=== PATIENT | female | born 1950 | race Caucasian/White ===

== ENCOUNTER → 2016-10-22 | Outpatient (CLI) | payer OTHER ==
[2016-10-22 11:17] LABS: ALBUMIN 3.9 GM/DL (3.2-5.2); ALKALINE PHOSPHATASE 89 U/L (45-117); ALT/SGPT 46 U/L (12-78); ANION GAP 8 MEQ/L (8-16); AST/SGOT 28 U/L (15-37); BILIRUBIN,TOTAL 0.4 MG/DL (0.2-1.0); BLOOD UREA NITROGEN 17 MG/DL (7-18); CARBON DIOXIDE LEVEL 29 MEQ/L (21-32); CHLORIDE LEVEL 105 MEQ/L (98-107); CHOLESTEROL LEVEL 183 MG/DL (<200); CREATININE FOR GFR 0.75 MG/DL (0.55-1.02); GLOMERULAR FILTRATION RATE > 60.0 (>45); GLUCOSE, FASTING 168 MG/DL (80-110); POTASSIUM SERUM 4.4 MEQ/L (3.5-5.1); SODIUM LEVEL 142 MEQ/L (136-145); TOTAL PROTEIN 6.9 GM/DL (6.4-8.2); TRIGLYCERIDES LEVEL 153 MG/DL (<150)
== END ==
LOC: M LAB 10:16
PROVIDERS: ATTEND Family Medicine
DX: E78.5 Hyperlipidemia, unspecified (principal); E55.9 Vitamin D deficiency, unspecified; E11.9 Type 2 diabetes mellitus without complications

== ENCOUNTER → 2016-10-27 | Outpatient (REF) | payer OTHER ==
[2016-10-27 16:10] LABS: FREE T4 0.85 NG/DL (0.76-1.46)
[2016-10-29 10:25] LABS: THYROID PEROXIDASE ANTIBODY < 28.0 U/ML (<60.0)
== END ==
LOC: M SFHCPLAZ 14:12
PROVIDERS: ATTEND Family Medicine
DX: E78.5 Hyperlipidemia, unspecified (principal)
CPT/HCPCS: 84439; 84443; 86376; 86800; G0463

== ENCOUNTER → 2017-02-17 | Outpatient (CLI) | payer OTHER ==
[2017-02-17 09:44] LABS: ALBUMIN/GLOBULIN RATIO 1.48 (1.00-1.93); ALKALINE PHOSPHATASE 88 U/L (45-117); ALT/SGPT 47 U/L (12-78); ANION GAP 8 MEQ/L (8-16); AST/SGOT 18 U/L (15-37); BILIRUBIN,TOTAL 0.5 MG/DL (0.2-1.0); BLOOD UREA NITROGEN 13 MG/DL (7-18); CALCIUM LEVEL 9.1 MG/DL (8.8-10.2); CARBON DIOXIDE LEVEL 29 MEQ/L (21-32); CHLORIDE LEVEL 104 MEQ/L (98-107); CREATININE FOR GFR 0.78 MG/DL (0.55-1.02); GLOMERULAR FILTRATION RATE > 60.0 (>45); GLUCOSE, FASTING 147 MG/DL (80-110); POTASSIUM SERUM 4.3 MEQ/L (3.5-5.1); SODIUM LEVEL 141 MEQ/L (136-145); TOTAL PROTEIN 6.7 GM/DL (6.4-8.2)
== END ==
LOC: M LAB 08:42
PROVIDERS: ATTEND Family Medicine
DX: E11.9 Type 2 diabetes mellitus without complications (principal); E55.9 Vitamin D deficiency, unspecified

== ENCOUNTER → 2017-10-05 | Outpatient (CLI) | payer OTHER ==
[2017-10-05 09:56] LABS: BASO # 0.1 10^3/uL (0.0-0.2); EOS # 0.1 10^3/uL (0.0-0.50); EOS % 1.4 % (0.0-3.0); HEMATOCRIT 44.8 % (36.0-47.0); HEMOGLOBIN 15.2 g/dl (12.0-16.0); IMMATURE GRANULOCYTE % 0.2 % (0-3.0); LYMPH # 1.4 10^3/uL (1.5-4.5); LYMPH % 24.3 % (24.0-44.0); MEAN CORPUSCULAR HEMOGLOBIN 30.1 pg (27.0-33.0); MEAN CORPUSCULAR HGB CONC 33.9 g/dl (32.0-36.5); MEAN CORPUSCULAR VOLUME 88.7 fl (80.0-96.0); MONO # 0.5 10^3/uL (0.0-0.8); MONO % 7.8 % (0.0-5.0); NEUTROPHILS # 3.8 10^3/uL (1.8-7.7); NEUTROPHILS % 65.3 % (36.0-66.0); PLATELET COUNT, AUTOMATED 247 10^3/uL (150-450); RED BLOOD COUNT 5.05 10^6/uL (4.00-5.40); RED CELL DISTRIBUTION WIDTH 12.3 % (11.5-14.5); WHITE BLOOD COUNT 5.8 10^3/uL (4.0-10.0)
[2017-10-05 10:06] LABS: APPEARANCE, URINE CLEAR (CLEAR); BACTERIA, URINE AUTO NEGATIVE (NEGATIVE); BILIRUBIN, URINE AUTO NEGATIVE (NEGATIVE); BLOOD, URINE BLOOD NEGATIVE (NEGATIVE); COLOR, URINE YELLOW (YELLOW); GLUCOSE, URINE (UA) AUTO NEGATIVE (NEGATIVE); KETONE, URINE AUTO NEGATIVE (NEGATIVE); LEUKOCYTE ESTERASE, URINE AUTO TRACE (NEGATIVE); MUCUS, URINE SMALL (NEGATIVE); NITRITE, URINE AUTO NEGATIVE (NEGATIVE); PROTEIN, URINE AUTO NEGATIVE (NEGATIVE); RBC, URINE AUTO 1 /HPF (0-3); SPECIFIC GRAVITY URINE AUTO 1.019 (1.002-1.035); SQUAMOUS EPITHELIAL CELL UR AU 1 /HPF (0-6); UROBILINOGEN, URINE AUTO 0.2 mg/dL (0.0-2.0); WBC, URINE AUTO 4 /HPF (0-3)
[2017-10-05 10:16] LABS: ALBUMIN 4.1 GM/DL (3.2-5.2); ALBUMIN/GLOBULIN RATIO 1.41 (1.00-1.93); ALKALINE PHOSPHATASE 86 U/L (45-117); ALT/SGPT 40 U/L (12-78); ANION GAP 6 MEQ/L (8-16); AST/SGOT 18 U/L (7-37); BILIRUBIN,TOTAL 0.6 MG/DL (0.2-1.0); BLOOD UREA NITROGEN 11 MG/DL (7-18); CALCIUM LEVEL 8.7 MG/DL (8.8-10.2); CARBON DIOXIDE LEVEL 29 MEQ/L (21-32); CHLORIDE LEVEL 107 MEQ/L (98-107); CHOLESTEROL LEVEL 157 MG/DL (<200); CHOLESTEROL RISK RATIO 2.754 (<5); CREATININE FOR GFR 0.68 MG/DL (0.55-1.30); GLOMERULAR FILTRATION RATE > 60.0 (>45); GLUCOSE, FASTING 164 MG/DL (70-100); HDL CHOLESTEROL 57 MG/DL (>40); LDL CHOLESTEROL 72.8 MG/DL (<100); NON-HDL-C 100 MG/DL; POTASSIUM SERUM 4.1 MEQ/L (3.5-5.1); SODIUM LEVEL 142 MEQ/L (136-145); TRIGLYCERIDES LEVEL 136 MG/DL (<150)
[2017-10-05 10:25] LABS: MALB URINE SIEMENS 19.5 MG/L
[2017-10-05 11:02] LABS: ESTIMATED AVERAGE GLUCOSE 177 MG/DL (60-110); HEMOGLOBIN A1c 7.8 %
[2017-10-05 12:03] LABS: TOTAL 25(OH) VITAMIN D 81.1 NG/ML (30.0-100.0)
[2017-10-05 12:04] LABS: PTH INTACT 116.3 PG/ML (18.5-88.0)
[2017-10-06 14:14] LABS: INSULIN LEVEL 5.8 uIU/mL (2.6-24.9)
== END ==
LOC: M LAB 09:09
DX: I10 Essential (primary) hypertension (principal); E11.9 Type 2 diabetes mellitus without complications; E55.9 Vitamin D deficiency, unspecified
CPT/HCPCS: 83525

== ENCOUNTER → 2017-11-06 | Outpatient (REF) | payer OTHER ==
[2017-11-06 16:48] LABS: INR 0.89; PARTIAL THROMBOPLASTIN TIME 24.6 SECONDS (26.8-37.9); PROTHROMBIN TIME 12.1 SECONDS (12.4-14.5)
== END ==
LOC: M SFHCPLAZ 15:01
DX: Z01.818 Encounter for other preprocedural examination (principal); H25.9 Unspecified age-related cataract; Z51.81 Encounter for therapeutic drug level monitoring; Z79.01 Long term (current) use of anticoagulants
CPT/HCPCS: 85610

== ENCOUNTER → 2017-11-23 | Outpatient (REF) | payer OTHER ==
[2017-11-23 12:09] LABS: BASO # 0.1 10^3/uL (0.0-0.2); BASO % 1.3 % (0.0-1.0); EOS # 0.1 10^3/uL (0.0-0.50); EOS % 1.4 % (0.0-3.0); HEMATOCRIT 43.3 % (36.0-47.0); HEMOGLOBIN 14.4 g/dl (12.0-15.5); IMMATURE GRANULOCYTE % 0.2 % (0-3.0); LYMPH # 1.5 10^3/uL (1.5-4.5); LYMPH % 26.4 % (24.0-44.0); MEAN CORPUSCULAR HEMOGLOBIN 29.6 pg (27.0-33.0); MEAN CORPUSCULAR HGB CONC 33.3 g/dl (32.0-36.5); MEAN CORPUSCULAR VOLUME 89.1 fl (80.0-96.0); MONO # 0.4 10^3/uL (0.0-0.8); MONO % 7.4 % (0.0-5.0); NEUTROPHILS # 3.5 10^3/uL (1.8-7.7); NEUTROPHILS % 63.3 % (36.0-66.0); PLATELET COUNT, AUTOMATED 249 10^3/uL (150-450); RED BLOOD COUNT 4.86 10^6/uL (4.00-5.40); RED CELL DISTRIBUTION WIDTH 12.7 % (11.5-14.5); WHITE BLOOD COUNT 5.6 10^3/uL (4.0-10.0)
[2017-11-23 12:17] LABS: INR 0.92; PROTHROMBIN TIME 12.4 SECONDS (12.4-14.5)
[2017-11-23 12:18] LABS: PARTIAL THROMBOPLASTIN TIME 24.7 SECONDS (26.8-37.9)
[2017-11-23 12:48] LABS: ALBUMIN 3.9 GM/DL (3.2-5.2); ALKALINE PHOSPHATASE 70 U/L (45-117); ALT/SGPT 43 U/L (12-78); ANION GAP 7 MEQ/L (8-16); AST/SGOT 15 U/L (7-37); BILIRUBIN,TOTAL 0.4 MG/DL (0.2-1.0); BLOOD UREA NITROGEN 16 MG/DL (7-18); CALCIUM LEVEL 9.3 MG/DL (8.8-10.2); CARBON DIOXIDE LEVEL 27 MEQ/L (21-32); CHLORIDE LEVEL 107 MEQ/L (98-107); CREATININE FOR GFR 0.69 MG/DL (0.55-1.30); GLOMERULAR FILTRATION RATE > 60.0 (>45); GLUCOSE, FASTING 159 MG/DL (70-100); POTASSIUM SERUM 4.3 MEQ/L (3.5-5.1); SODIUM LEVEL 141 MEQ/L (136-145); TOTAL PROTEIN 6.9 GM/DL (6.4-8.2)
[2017-11-23 15:04] LABS: ESTIMATED AVERAGE GLUCOSE 169 MG/DL (60-110); HEMOGLOBIN A1c 7.5 %
== END ==
LOC: M SFHCPLAZ 10:34
DX: Z01.818 Encounter for other preprocedural examination (principal); H26.9 Unspecified cataract; R03.0 Elevated blood-pressure reading, without diagnosis of hypertension; E11.9 Type 2 diabetes mellitus without complications; Z79.84 Long term (current) use of oral hypoglycemic drugs; Z79.899 Other long term (current) drug therapy
CPT/HCPCS: 80053

== ENCOUNTER 2017-12-09 08:38 | Day surgery (SDC) | payer OTHER ==
[~2017-12-09 08:38] MED LIST: PHENYLEPHRINE HCL 10 % OPHTH. SOL 5ML OD
[2017-12-09] MEDS: LIDOCAINE 3.5 % 1ML OPHTH TOPICAL GEL OU (09:20)
[2017-12-09] MEDS: OFLOXACIN 0.3 % (OCUFLOX) OPTH SOL 5ML OD (09:29)
[2017-12-09] MEDS: TROPICAMIDE 1% OPHTH SOLN 2ML OD (09:30)
[2017-12-09] MEDS: CYCLOPENTOLATE 2% OPHTH SOLN 2ML BTL OD (09:31)
[2017-12-09] MEDS: PHENYLEPHRINE 2.5% OPHTH SOL 2ML OD (09:32)
[2017-12-09] MEDS ORDERED: fentaNYL 100 MCG/2 ML INJECTION (J3010) As Ordered (10:39)
[2017-12-09] MEDS ORDERED: MIDAZOLAM INJ 2 MG/2 ML VIAL (J2250) As Ordered (10:39)
[2017-12-09] MEDS: POVIDONE-IODINE 5% OPHTH PREP SOL 30ML As Ordered (10:45)
[2017-12-09] MEDS: CEFUROXIME 1MG/0.1ML INTRACAMERAL INJ As Ordered (10:51)
[2017-12-09] MEDS: BALANCED SALT IRRIGATION SOLUTION 500ML BAG (FOR OR EYE MACHINE) As Ordered (10:51)
[2017-12-09] MEDS: LIDOCAINE 1% SDV 5 ML VIAL As Ordered (10:51)
[2017-12-09] MEDS: HEALON DUET (HEALON 10MG/ML 0.55ML & HEALON ENDOCOAT 30MG/ML 0.85ML) As Ordered (10:51)
[2017-12-09] MEDS ORDERED: AcetaZOLAMIDE 500 MG ER CAP As Ordered (11:28)
[2017-12-09] MEDS ORDERED: ACETAMINOPHEN TAB 650MG DOSE (2X325MG) PO (11:30)
[2017-12-09] MEDS ORDERED: ONDANSETRON 4MG/2ML VIAL (J2405) IV (11:30)
[2017-12-09 13:15] LABS: BEDSIDE GLUCOSE 130 MG/DL (80-115)
== END 2017-12-09 12:00 | disposition home or self-care (01) ==
LOC: M SDC 08:38
DX: H25.12 Age-related nuclear cataract, left eye (principal); I10 Essential (primary) hypertension; E11.9 Type 2 diabetes mellitus without complications; E78.5 Hyperlipidemia, unspecified; G47.30 Sleep apnea, unspecified; Z79.899 Other long term (current) drug therapy
CPT/HCPCS: 66984

== ENCOUNTER → 2017-12-30 | Outpatient (CLI) | payer OTHER | LOC: M SMT 12:16 | DX: M19.012 Primary osteoarthritis, left shoulder (principal); M75.32 Calcific tendinitis of left shoulder; M54.9 Dorsalgia, unspecified | CPT/HCPCS: 71046; G0463 ==

== ENCOUNTER → 2018-02-05 | Outpatient (CLI) | payer OTHER ==
[2018-02-05 09:33] LABS: BASO # 0.1 10^3/uL (0.0-0.2); BASO % 1.1 % (0.0-1.0); EOS # 0.1 10^3/uL (0.0-0.50); EOS % 1.9 % (0.0-3.0); HEMOGLOBIN 14.1 g/dl (12.0-15.5); IMMATURE GRANULOCYTE % 0.2 % (0-3.0); LYMPH # 1.5 10^3/uL (1.5-4.5); MEAN CORPUSCULAR HEMOGLOBIN 30.4 pg (27.0-33.0); MEAN CORPUSCULAR HGB CONC 33.6 g/dl (32.0-36.5); MEAN CORPUSCULAR VOLUME 90.5 fl (80.0-96.0); MONO # 0.4 10^3/uL (0.0-0.8); MONO % 8.6 % (0.0-5.0); NEUTROPHILS # 2.6 10^3/uL (1.8-7.7); NEUTROPHILS % 55.2 % (36.0-66.0); PLATELET COUNT, AUTOMATED 256 10^3/uL (150-450); RED BLOOD COUNT 4.64 10^6/uL (4.00-5.40); RED CELL DISTRIBUTION WIDTH 13.1 % (11.5-14.5); RETIC HEMOGLOBIN EQUIVALENT 35.7 pg (24-36); RETICULOCYTE # 50.1 10^9/L (17-77); RETICULOCYTE % 1.1 % (0.5-1.5); WHITE BLOOD COUNT 4.6 10^3/uL (4.0-10.0)
[2018-02-05 10:36] LABS: ALBUMIN 3.8 GM/DL (3.2-5.2); ALBUMIN/GLOBULIN RATIO 1.31 (1.00-1.93); ALKALINE PHOSPHATASE 70 U/L (45-117); ALT/SGPT 44 U/L (12-78); ANION GAP 7 MEQ/L (8-16); AST/SGOT 19 U/L (7-37); BILIRUBIN,TOTAL 0.4 MG/DL (0.2-1.0); BLOOD UREA NITROGEN 12 MG/DL (7-18); CALCIUM LEVEL 8.4 MG/DL (8.8-10.2); CARBON DIOXIDE LEVEL 28 MEQ/L (21-32); CHLORIDE LEVEL 110 MEQ/L (98-107); CHOLESTEROL LEVEL 248 MG/DL (<200); CHOLESTEROL RISK RATIO 5.061 (<5); CPK CREATINE PHOSPHOKINASE 52 U/L (26-192); CREATININE FOR GFR 0.69 MG/DL (0.55-1.30); GLOMERULAR FILTRATION RATE > 60.0 (>45); GLUCOSE, FASTING 140 MG/DL (70-100); HDL CHOLESTEROL 49 MG/DL (>40); LDL CHOLESTEROL 166.4 MG/DL (<100); NON-HDL-C 199 MG/DL; POTASSIUM SERUM 4.4 MEQ/L (3.5-5.1); SODIUM LEVEL 145 MEQ/L (136-145); TOTAL PROTEIN 6.7 GM/DL (6.4-8.2); TRIGLYCERIDES LEVEL 163 MG/DL (<150)
[2018-02-05 10:48] LABS: ESTIMATED AVERAGE GLUCOSE 151 MG/DL (60-110); HEMOGLOBIN A1c 6.9 %
[2018-02-05 11:04] LABS: PTH INTACT 91.5 PG/ML (18.5-88.0); TOTAL 25(OH) VITAMIN D 47.7 NG/ML (30.0-100.0)
[2018-02-05 11:05] LABS: VITAMIN B12 LEVEL 788 PG/ML (247-911)
[2018-02-05 14:32] LABS: PRETREATED FOLATE FOR RBCFOL 14.4 NG/ML
== END ==
LOC: M LAB 08:57
DX: E53.8 Deficiency of other specified B group vitamins (principal); E78.5 Hyperlipidemia, unspecified; E55.9 Vitamin D deficiency, unspecified; E11.9 Type 2 diabetes mellitus without complications; Z79.899 Other long term (current) drug therapy
CPT/HCPCS: 82550

== ENCOUNTER 2018-02-10 13:00 | Day surgery (SDC) | payer OTHER ==
[2018-02-10 11:25] LABS: BEDSIDE GLUCOSE 173 MG/DL (80-115)
[2018-02-10] MEDS: LIDOCAINE 3.5 % 1ML OPHTH TOPICAL GEL OU (11:29)
[2018-02-10] MEDS: PHENYLEPHRINE 2.5% OPHTH SOL 2ML OS (11:29)
[2018-02-10] MEDS: OFLOXACIN 0.3 % (OCUFLOX) OPTH SOL 5ML OS (11:29)
[2018-02-10] MEDS: TROPICAMIDE 1% OPHTH SOLN 2ML OS (11:30)
[2018-02-10] MEDS: CYCLOPENTOLATE 2% OPHTH SOLN 2ML BTL OS (11:30)
[2018-02-10] MEDS: HEALON DUET (HEALON 10MG/ML 0.55ML & HEALON ENDOCOAT 30MG/ML 0.85ML) As Ordered (11:51)
[2018-02-10] MEDS: BALANCED SALT IRRIGATION SOLUTION 500ML BAG (FOR OR EYE MACHINE) As Ordered (11:51)
[2018-02-10] MEDS: POVIDONE-IODINE 5% OPHTH PREP SOL 30ML As Ordered (11:51)
[2018-02-10] MEDS: LIDOCAINE 1% SDV 5 ML VIAL As Ordered (11:52)
[2018-02-10] MEDS: CEFUROXIME 1MG/0.1ML INTRACAMERAL INJ As Ordered (11:52)
[~2018-02-10 13:00] MED LIST changes: +CYCLOPENTOLATE 2% OPHTH SOLN 2ML BTL As Ordered; +LIDOCAINE 1% MDV 20ML VIAL SQ; +MIDAZOLAM INJ 2 MG/2 ML VIAL (J2250) As Ordered; +OFLOXACIN 0.3 % (OCUFLOX) OPTH SOL 5ML As Ordered; +PHENYLEPHRINE 2.5% OPHTH SOL 2ML As Ordered; -PHENYLEPHRINE HCL 10 % OPHTH. SOL 5ML OD; +PHENYLEPHRINE HCL 10 % OPHTH. SOL 5ML OS; +TROPICAMIDE 1% OPHTH SOLN 2ML As Ordered; +fentaNYL 100 MCG/2 ML INJECTION (J3010) As Ordered
== END 2018-02-10 13:01 | disposition home or self-care (01) ==
LOC: M SDC 13:00
DX: H25.12 Age-related nuclear cataract, left eye (principal); I10 Essential (primary) hypertension; E78.5 Hyperlipidemia, unspecified; E11.9 Type 2 diabetes mellitus without complications; G47.30 Sleep apnea, unspecified; Z79.899 Other long term (current) drug therapy; Z88.8 Allergy status to other drugs, medicaments and biological substances
CPT/HCPCS: 66984

== ENCOUNTER → 2018-06-30 | Outpatient (CLI) | payer OTHER ==
[2018-06-30 10:57] LABS: APPEARANCE, URINE CLEAR (CLEAR); BACTERIA, URINE AUTO 1+ (NEGATIVE); BILIRUBIN, URINE AUTO NEGATIVE (NEGATIVE); BLOOD, URINE BLOOD NEGATIVE (NEGATIVE); COLOR, URINE YELLOW (YELLOW); GLUCOSE, URINE (UA) AUTO NEGATIVE (NEGATIVE); KETONE, URINE AUTO NEGATIVE (NEGATIVE); LEUKOCYTE ESTERASE, URINE AUTO 1+ (NEGATIVE); MUCUS, URINE SMALL (NEGATIVE); NITRITE, URINE AUTO NEGATIVE (NEGATIVE); PROTEIN, URINE AUTO NEGATIVE (NEGATIVE); RBC, URINE AUTO 1 /HPF (0-3); SPECIFIC GRAVITY URINE AUTO 1.017 (1.002-1.035); SQUAMOUS EPITHELIAL CELL UR AU 1 /HPF (0-6); UROBILINOGEN, URINE AUTO 0.2 mg/dL (0.0-2.0); WBC, URINE AUTO 9 /HPF (0-3)
[2018-06-30 11:22] LABS: ALBUMIN/GLOBULIN RATIO 1.38 (1.00-1.93); ALKALINE PHOSPHATASE 78 U/L (45-117); ALT/SGPT 40 U/L (12-78); ANION GAP 4 MEQ/L (8-16); AST/SGOT 15 U/L (7-37); BILIRUBIN,TOTAL 0.4 MG/DL (0.2-1.0); BLOOD UREA NITROGEN 17 MG/DL (7-18); C REACTIVE PROTEIN QUANTITATIV < 0.30 MG/DL (0.00-0.30); CALCIUM LEVEL 8.7 MG/DL (8.8-10.2); CARBON DIOXIDE LEVEL 30 MEQ/L (21-32); CHLORIDE LEVEL 107 MEQ/L (98-107); CHOLESTEROL LEVEL 270 MG/DL (<200); CHOLESTEROL RISK RATIO 5.294 (<5); CREATININE FOR GFR 0.68 MG/DL (0.55-1.30); GLOMERULAR FILTRATION RATE > 60.0 (>45); GLUCOSE, FASTING 125 MG/DL (70-100); HDL CHOLESTEROL 51 MG/DL (>40); LDL CHOLESTEROL 188 MG/DL (<100); NON-HDL-C 219 MG/DL; POTASSIUM SERUM 4.2 MEQ/L (3.5-5.1); SODIUM LEVEL 141 MEQ/L (136-145); TOTAL PROTEIN 6.9 GM/DL (6.4-8.2); TRIGLYCERIDES LEVEL 154 MG/DL (<150)
[2018-06-30 11:23] LABS: ESTIMATED AVERAGE GLUCOSE 146 MG/DL (60-110); HEMOGLOBIN A1c 6.7 %; MALB URINE SIEMENS 32.4 MG/L; MAU/CREAT RATIO 30.2 MCG/MG (0.0-30.0)
[2018-06-30 11:32] LABS: TOTAL 25(OH) VITAMIN D 49.1 NG/ML (30.0-100.0)
[2018-06-30 11:33] LABS: PTH INTACT 104.4 PG/ML (18.5-88.0)
== END ==
LOC: M LAB 10:15
DX: E55.9 Vitamin D deficiency, unspecified (principal); E11.9 Type 2 diabetes mellitus without complications; E78.5 Hyperlipidemia, unspecified; Z79.899 Other long term (current) drug therapy
CPT/HCPCS: 80053

== ENCOUNTER → 2018-11-23 | Outpatient (CLI) | payer MEDICARE, OTHER ==
[~2018-11-23] MED LIST changes: -CYCLOPENTOLATE 2% OPHTH SOLN 2ML BTL As Ordered; -LIDOCAINE 1% MDV 20ML VIAL SQ; +LISI-1046 PO; +METF500T4 PO; -MIDAZOLAM INJ 2 MG/2 ML VIAL (J2250) As Ordered; -OFLOXACIN 0.3 % (OCUFLOX) OPTH SOL 5ML As Ordered; -PHENYLEPHRINE 2.5% OPHTH SOL 2ML As Ordered; -PHENYLEPHRINE HCL 10 % OPHTH. SOL 5ML OS; +ROSU5TAB4 PO; -TROPICAMIDE 1% OPHTH SOLN 2ML As Ordered; -fentaNYL 100 MCG/2 ML INJECTION (J3010) As Ordered
[2018-11-23 10:35] LABS: HEMOGLOBIN A1c 7.3 %
[2018-11-23 10:45] LABS: MALB URINE SIEMENS 30.4 MG/L; MAU/CREAT RATIO 25.3 MCG/MG (0.0-30.0)
[2018-11-23 10:46] LABS: APPEARANCE, URINE HAZY (CLEAR); BACTERIA, URINE AUTO NEGATIVE (NEGATIVE); BILIRUBIN, URINE AUTO NEGATIVE (NEGATIVE); BLOOD, URINE BLOOD NEGATIVE (NEGATIVE); COLOR, URINE YELLOW (YELLOW); GLUCOSE, URINE (UA) AUTO NEGATIVE (NEGATIVE); KETONE, URINE AUTO NEGATIVE (NEGATIVE); LEUKOCYTE ESTERASE, URINE AUTO 3+ (NEGATIVE); MUCUS, URINE SMALL (NEGATIVE); NITRITE, URINE AUTO NEGATIVE (NEGATIVE); PROTEIN, URINE AUTO NEGATIVE (NEGATIVE); RBC, URINE AUTO 4 /HPF (0-3); SPECIFIC GRAVITY URINE AUTO 1.017 (1.002-1.035); SQUAMOUS EPITHELIAL CELL UR AU 4 /HPF (0-6); UROBILINOGEN, URINE AUTO 0.2 mg/dL (0.0-2.0); WBC, URINE AUTO 42 /HPF (0-3)
[2018-11-23 10:47] LABS: ALT/SGPT 38 U/L (12-78); BLOOD UREA NITROGEN 18 MG/DL (7-18); CALCIUM LEVEL 9.1 MG/DL (8.8-10.2); CARBON DIOXIDE LEVEL 31 MEQ/L (21-32); CHLORIDE LEVEL 108 MEQ/L (98-107); CPK CREATINE PHOSPHOKINASE 55 U/L (26-192); CREATININE FOR GFR 0.74 MG/DL (0.55-1.30); GLOMERULAR FILTRATION RATE > 60.0 (>45); GLUCOSE, FASTING 147 MG/DL (70-100); POTASSIUM SERUM 4.5 MEQ/L (3.5-5.1); SODIUM LEVEL 142 MEQ/L (136-145)
[2018-11-23 10:48] LABS: BILIRUBIN,TOTAL 0.4 MG/DL (0.2-1.0); CHOLESTEROL LEVEL 289 MG/DL (<200); FREE T4 0.89 NG/DL (0.76-1.46); HDL CHOLESTEROL 50 MG/DL (>40); LDL CHOLESTEROL 193 MG/DL (<100); NON-HDL-C 239 MG/DL; TOTAL PROTEIN 6.6 GM/DL (6.4-8.2); TRIGLYCERIDES LEVEL 230 MG/DL (<150)
== END ==
LOC: M RAD 09:44 → M LAB 09:44
PROVIDERS: ATTEND Family Medicine
DX: E11.9 Type 2 diabetes mellitus without complications (principal)

== ENCOUNTER → 2019-05-05 | Outpatient (CLI) | payer MEDICARE ==
[~2019-05-05] MED LIST changes: +METF-791 PO; -METF500T4 PO; -ROSU5TAB4 PO; +ROSU5TAB5 PO
[2019-05-05 10:52] LABS: BASO # 0.1 10^3/uL (0.0-0.2); BASO % 1.3 % (0.0-1.0); EOS # 0.1 10^3/uL (0.0-0.5); EOS % 2.3 % (0.0-3.0); HEMATOCRIT 43.9 % (36.0-47.0); LYMPH # 1.6 10^3/uL (1.5-5.0); LYMPH % 28.8 % (24.0-44.0); MEAN CORPUSCULAR HEMOGLOBIN 31.4 pg (27.0-33.0); MEAN CORPUSCULAR HGB CONC 34.2 g/dl (32.0-36.5); MEAN CORPUSCULAR VOLUME 91.8 fl (80.0-96.0); MONO # 0.4 10^3/uL (0.0-0.8); MONO % 7.6 % (0.0-5.0); NEUTROPHILS # 3.3 10^3/uL (1.5-8.5); NEUTROPHILS % 59.8 % (36.0-66.0); PLATELET COUNT, AUTOMATED 231 10^3/uL (150-450); RED BLOOD COUNT 4.78 10^6/uL (4.00-5.40); WHITE BLOOD COUNT 5.6 10^3/uL (4.0-10.0)
[2019-05-05 11:11] LABS: HEMOGLOBIN A1c 7.4 %
[2019-05-05 11:31] LABS: ALT/SGPT 39 U/L (12-78); BILIRUBIN,TOTAL 0.5 MG/DL (0.2-1.0); BLOOD UREA NITROGEN 15 MG/DL (7-18); C REACTIVE PROTEIN QUANTITATIV < 0.30 MG/DL (0.00-0.30); CALCIUM LEVEL 9.1 MG/DL (8.8-10.2); CARBON DIOXIDE LEVEL 31 MEQ/L (21-32); CHLORIDE LEVEL 106 MEQ/L (98-107); CHOLESTEROL LEVEL 168 MG/DL (<200); CHOLESTEROL RISK RATIO 3.111 (<5); CPK CREATINE PHOSPHOKINASE 53 U/L (26-192); CREATININE FOR GFR 0.75 MG/DL (0.55-1.30); GLOMERULAR FILTRATION RATE > 60.0 (>45); GLUCOSE, FASTING 146 MG/DL (70-100); HDL CHOLESTEROL 54 MG/DL (>40); LDL CHOLESTEROL 75 MG/DL (<100); NON-HDL-C 114 MG/DL; POTASSIUM SERUM 4.2 MEQ/L (3.5-5.1); SODIUM LEVEL 143 MEQ/L (136-145); TOTAL PROTEIN 6.8 GM/DL (6.4-8.2); TRIGLYCERIDES LEVEL 196 MG/DL (<150)
[2019-05-05 11:33] LABS: VITAMIN B12 LEVEL 515 PG/ML (247-911)
[2019-05-06 10:04] LABS: THYROID PEROXIDASE ANTIBODY 42.9 U/ML (<60.0)
== END ==
LOC: M LAB 09:55
PROVIDERS: ATTEND Family Medicine
DX: I10 Essential (primary) hypertension (principal); E78.5 Hyperlipidemia, unspecified; E11.9 Type 2 diabetes mellitus without complications

== ENCOUNTER → 2019-10-04 | Outpatient (CLI) | payer MEDICARE ==
[2019-10-04 10:31] LABS: BASO # 0.1 10^3/uL (0.0-0.2); EOS # 0.1 10^3/uL (0.0-0.5); EOS % 1.4 % (0.0-3.0); HEMATOCRIT 43.7 % (36.0-47.0); HEMOGLOBIN 14.7 g/dl (12.0-15.5); LYMPH # 1.5 10^3/uL (1.5-5.0); LYMPH % 29.7 % (24.0-44.0); MEAN CORPUSCULAR HEMOGLOBIN 30.6 pg (27.0-33.0); MEAN CORPUSCULAR HGB CONC 33.6 g/dl (32.0-36.5); MEAN CORPUSCULAR VOLUME 90.9 fl (80.0-96.0); MONO # 0.4 10^3/uL (0.0-0.8); MONO % 7.9 % (0.0-5.0); NEUTROPHILS # 3.1 10^3/uL (1.5-8.5); NEUTROPHILS % 59.8 % (36.0-66.0); PLATELET COUNT, AUTOMATED 236 10^3/uL (150-450); RED BLOOD COUNT 4.81 10^6/uL (4.00-5.40); WHITE BLOOD COUNT 5.2 10^3/uL (4.0-10.0)
[2019-10-04 10:51] LABS: ALBUMIN 4.2 GM/DL (3.2-5.2); ALT/SGPT 48 U/L (12-78); BILIRUBIN,TOTAL 0.5 MG/DL (0.2-1.0); BLOOD UREA NITROGEN 15 MG/DL (7-18); CALCIUM LEVEL 8.9 MG/DL (8.8-10.2); CARBON DIOXIDE LEVEL 28 MEQ/L (21-32); CHLORIDE LEVEL 109 MEQ/L (98-107); CHOLESTEROL LEVEL 154 MG/DL (<200); CHOLESTEROL RISK RATIO 2.961 (<5); GLOMERULAR FILTRATION RATE > 60.0 (>45); GLUCOSE, FASTING 166 MG/DL (70-100); HDL CHOLESTEROL 52 MG/DL (>40); LDL CHOLESTEROL 75 MG/DL (<100); NON-HDL-C 102 MG/DL; POTASSIUM SERUM 4.3 MEQ/L (3.5-5.1); SODIUM LEVEL 141 MEQ/L (136-145); TOTAL PROTEIN 6.8 GM/DL (6.4-8.2); TRIGLYCERIDES LEVEL 135 MG/DL (<150)
[2019-10-04 11:38] LABS: PTH INTACT 66.9 PG/ML (18.5-88.0); TOTAL 25(OH) VITAMIN D 62.9 NG/ML (30.0-100.0); VITAMIN B12 LEVEL 682 PG/ML (247-911)
== END ==
LOC: M LAB 09:39
PROVIDERS: ATTEND Family Medicine
DX: E78.5 Hyperlipidemia, unspecified (principal)

== ENCOUNTER → 2020-03-01 | Outpatient (CLI) | payer MEDICARE ==
[~2020-03-01] MED LIST changes: -LISI-1046 PO; +LISI2.5T2 PO; -METF-791 PO; +METF-838 PO
[2020-03-31 10:24] LABS: BASO # 0.1 10^3/uL (0.0-0.2); BASO % 1.1 % (0.0-1.0); EOS # 0.1 10^3/uL (0.0-0.5); EOS % 2.1 % (0.0-3.0); HEMATOCRIT 45.2 % (36.0-47.0); HEMOGLOBIN 14.8 g/dl (12.0-15.5); LYMPH # 1.7 10^3/uL (1.5-5.0); LYMPH % 31.6 % (24.0-44.0); MEAN CORPUSCULAR HEMOGLOBIN 30.6 pg (27.0-33.0); MEAN CORPUSCULAR HGB CONC 32.7 g/dl (32.0-36.5); MEAN CORPUSCULAR VOLUME 93.4 fl (80.0-96.0); MONO # 0.4 10^3/uL (0.0-0.8); MONO % 8.3 % (0.0-5.0); NEUTROPHILS % 56.7 % (36.0-66.0); PLATELET COUNT, AUTOMATED 245 10^3/uL (150-450); RED BLOOD COUNT 4.84 10^6/uL (4.00-5.40); WHITE BLOOD COUNT 5.3 10^3/uL (4.0-10.0)
[2020-04-16 08:36] LABS: ALBUMIN 4.3 GM/DL (3.2-5.2); ALT/SGPT 48 U/L (12-78); BILIRUBIN,TOTAL 0.5 MG/DL (0.2-1.0); BLOOD UREA NITROGEN 17 MG/DL (7-18); CARBON DIOXIDE LEVEL 32 MEQ/L (21-32); CHLORIDE LEVEL 107 MEQ/L (98-107); FREE T4 0.85 NG/DL (0.76-1.46); GLOMERULAR FILTRATION RATE > 60.0 (>39); GLUCOSE, FASTING 116 MG/DL (70-100); HEMOGLOBIN A1c 6.8 %; MALB URINE SIEMENS 16.8 MG/L; POTASSIUM SERUM 4.3 MEQ/L (3.5-5.1); SODIUM LEVEL 140 MEQ/L (136-145); TOTAL PROTEIN 7.2 GM/DL (6.4-8.2)
[2020-06-06 15:47] LABS: LEUKOCYTE ESTERASE, URINE AUTO TNPT (NEGATIVE)
== END ==
LOC: M LAB 09:58
PROVIDERS: ATTEND Family Medicine
DX: E53.8 Deficiency of other specified B group vitamins (principal); E78.5 Hyperlipidemia, unspecified; E11.9 Type 2 diabetes mellitus without complications

== ENCOUNTER → 2020-08-07 | Outpatient (CLI) | payer MEDICARE ==
[2020-08-07 11:12] LABS: BASO % 0.8 % (0.0-1.0); EOS # 0.1 10^3/uL (0.0-0.5); EOS % 1.2 % (0.0-3.0); HEMATOCRIT 43.8 % (36.0-47.0); HEMOGLOBIN 14.4 g/dl (12.0-15.5); LYMPH # 1.6 10^3/uL (1.5-5.0); LYMPH % 30.9 % (24.0-44.0); MEAN CORPUSCULAR HEMOGLOBIN 30.1 pg (27.0-33.0); MEAN CORPUSCULAR HGB CONC 32.9 g/dl (32.0-36.5); MEAN CORPUSCULAR VOLUME 91.4 fl (80.0-96.0); MONO # 0.4 10^3/uL (0.0-0.8); MONO % 8.4 % (0.0-5.0); NEUTROPHILS # 2.9 10^3/uL (1.5-8.5); NEUTROPHILS % 58.5 % (36.0-66.0); PLATELET COUNT, AUTOMATED 266 10^3/uL (150-450); RED BLOOD COUNT 4.79 10^6/uL (4.00-5.40)
[2020-08-07 11:29] LABS: HEMOGLOBIN A1c 6.6 %
[2020-08-07 11:35] LABS: ALT/SGPT 41 U/L (12-78); BILIRUBIN,TOTAL 0.7 MG/DL (0.2-1.0); BLOOD UREA NITROGEN 14 MG/DL (7-18); CALCIUM LEVEL 9.4 MG/DL (8.8-10.2); CARBON DIOXIDE LEVEL 32 MEQ/L (21-32); CHLORIDE LEVEL 106 MEQ/L (98-107); CHOLESTEROL LEVEL 179 MG/DL (<200); CHOLESTEROL RISK RATIO 3.808 (<5); CREATININE FOR GFR 0.88 MG/DL (0.55-1.30); FREE T4 0.87 NG/DL (0.76-1.46); GLOMERULAR FILTRATION RATE > 60.0 (>39); GLUCOSE, FASTING 91 MG/DL (70-100); HDL CHOLESTEROL 47 MG/DL (>40); LDL CHOLESTEROL 98 MG/DL (<100); NON-HDL-C 132 MG/DL; POTASSIUM SERUM 4.1 MEQ/L (3.5-5.1); SODIUM LEVEL 141 MEQ/L (136-145); TRIGLYCERIDES LEVEL 169 MG/DL (<150)
[2020-08-07 11:40] LABS: MALB URINE SIEMENS 36.2 MG/L; MAU/CREAT RATIO 14.1 MCG/MG (0.0-30.0)
== END ==
LOC: M LAB 10:05
PROVIDERS: ATTEND Family Medicine
DX: E55.9 Vitamin D deficiency, unspecified (principal); E78.5 Hyperlipidemia, unspecified; I10 Essential (primary) hypertension; E11.9 Type 2 diabetes mellitus without complications

== ENCOUNTER → 2020-09-06 | Outpatient (CLI) | payer MEDICARE ==
--- NOTE | 2020-09-06 11:20 | REPPI ---
INDICATION: R14.0 ABDOMINAL BLOATING COMPARISON: None. TECHNIQUE: Upright view of the chest with supine and upright views of the abdomen and pelvis. FINDINGS: Frontal upright view of the chest demonstrates no acute cardiopulmonary process or free air below the diaphragm to suspect pneumoperitoneum. Supine and upright views of the abdomen and pelvis demonstrate nonspecific bowel gas pattern without obstruction or perforation. No organomegaly. No abnormal calcifications. Skeletal structures normal for age. IMPRESSION: Nonspecific bowel gas pattern. <Electronically signed by Leno Mtz > 09/06/20 [id number]
== END ==
LOC: M PLAIMG 10:56
PROVIDERS: ATTEND Family Medicine
DX: R14.0 Abdominal distension (gaseous) (principal)
CPT/HCPCS: 74021; G0463

== ENCOUNTER → 2020-09-27 | Outpatient (REF) | payer MEDICARE ==
[2020-09-27 14:38] LABS: ALBUMIN 4.2 GM/DL (3.2-5.2); ALT/SGPT 40 U/L (12-78); BILIRUBIN,TOTAL 0.3 MG/DL (0.2-1.0); BLOOD UREA NITROGEN 18 MG/DL (7-18); CALCIUM LEVEL 9.6 MG/DL (8.8-10.2); CARBON DIOXIDE LEVEL 30 MEQ/L (21-32); CHLORIDE LEVEL 109 MEQ/L (98-107); CREATININE FOR GFR 0.81 MG/DL (0.55-1.30); GLOMERULAR FILTRATION RATE > 60.0 (>39); GLUCOSE, FASTING 144 MG/DL (70-100); LIPASE 102 U/L (73-393); POTASSIUM SERUM 4.2 MEQ/L (3.5-5.1); SODIUM LEVEL 142 MEQ/L (136-145); TOTAL PROTEIN 6.9 GM/DL (6.4-8.2)
[2020-09-27 14:40] LABS: BASO # 0.1 10^3/uL (0.0-0.2); BASO % 1.1 % (0.0-1.0); EOS # 0.1 10^3/uL (0.0-0.5); EOS % 1.4 % (0.0-3.0); HEMATOCRIT 43.8 % (36.0-47.0); LYMPH # 1.8 10^3/uL (1.5-5.0); LYMPH % 28.3 % (24.0-44.0); MEAN CORPUSCULAR HEMOGLOBIN 29.8 pg (27.0-33.0); MEAN CORPUSCULAR VOLUME 93.2 fl (80.0-96.0); MONO # 0.5 10^3/uL (0.0-0.8); MONO % 7.9 % (2.0-8.0); NEUTROPHILS # 3.9 10^3/uL (1.5-8.5); NEUTROPHILS % 61.1 % (36.0-66.0); PLATELET COUNT, AUTOMATED 277 10^3/uL (150-450); WHITE BLOOD COUNT 6.4 10^3/uL (4.0-10.0)
[2020-09-27 15:15] LABS: CA 125 5.4 U/ML (<30.2)
[2020-10-05 15:09] LABS: H PYLORI SERUM QUANT IgG ABY 0.12 (0.00-0.79); TISSUE TRANSGLUTAMINASE IgA <2 U/mL (0-3)
== END ==
LOC: M SFHCPLAZ 13:02
PROVIDERS: ATTEND Family Medicine
DX: R14.0 Abdominal distension (gaseous) (principal)
CPT/HCPCS: 36415; 80053; 83516; 83519; 83690; 85025; 86140; 86304; 86677; G0463

== ENCOUNTER → 2020-10-12 | Outpatient (CLI) | payer MEDICARE ==
[~2020-10-12] MED LIST changes: +GASTROGRAFIN SOLUTION 30ML (Q9963) As Ordered ONE
--- NOTE | 2020-10-12 18:55 | REP ---
INDICATION: ABDOMINAL BLOATING. COMPARISON: None TECHNIQUE: Axial contrast-enhanced images from the lung bases to the pubic symphysis using oral and 100 cc Isovue 370 intravenous contrast material. Coronal and sagittal reformations obtained. This CT examination was performed using the following dose reduction techniques: Automated exposure control, adjustment of mA and/or kv according to the patient's size, and the use of iterative reconstruction technique. FINDINGS: Lung bases are clear. Visualized heart and pericardium normal. Liver demonstrates mild fatty infiltration without focal hepatic lesion. Spleen, pancreas, bilateral adrenal glands and kidneys are normal. Evidence for prior cholecystectomy. The enteric system including stomach, small, and large bowel appears normal. No evidence for obstruction or acute inflammatory process. Normal terminal ileum and cecum are identified in the right lower quadrant. Pelvis demonstrates normal bladder and evidence for prior hysterectomy. No ascites. No free air. No intraperitoneal or retroperitoneal adenopathy. Abdominal aorta and vasculature appear normal. Musculoskeletal structures are intact and without acute osseous abnormality. IMPRESSION: No acute abdominopelvic pathology appreciated. Mild hepatosteatosis. <Electronically signed by Leno Mtz > 10/12/20 [id number]
== END ==
LOC: M RAD 15:04
PROVIDERS: ATTEND Family Medicine
DX: R14.0 Abdominal distension (gaseous) (principal); K76.0 Fatty (change of) liver, not elsewhere classified
CPT/HCPCS: 74177; Q9963

== ENCOUNTER → 2020-10-30 | Outpatient (CLI) | payer MEDICARE ==
[~2020-10-30] MED LIST changes: -GASTROGRAFIN SOLUTION 30ML (Q9963) As Ordered ONE
--- NOTE | 2020-10-30 11:39 | REP ---
INDICATION: ABD BLOATING. COMPARISON: None. TECHNIQUE/RADIOTRACER AND DOSE: 1.05 mCi of Technetium-99m sulfur colloid was ingested in two scrambled eggs and 6 ounces of water and sequential anterior and posterior images are acquired for an 89-minute imaging observation period. Regions of interest are drawn around the stomach to plot gastric emptying. FINDINGS: Expected T1/2 is 90 minutes. Forty-seven% emptying is observed in this patient during the 89-minute imaging observation period, for a calculated T1/2 in this patient of 88 minutes. IMPRESSION: Normal gastric emptying. <Electronically signed by Rodriguez Rouse > 10/30/20 [id number]
== END ==
LOC: M RAD 08:52
PROVIDERS: ATTEND Family Medicine
DX: R14.0 Abdominal distension (gaseous) (principal)
CPT/HCPCS: 78264; A9541

== ENCOUNTER → 2020-12-04 | Outpatient (CLI) | payer MEDICARE ==
[2020-12-04 12:16] LABS: BASO # 0.1 10^3/uL (0.0-0.2); BASO % 1.2 % (0.0-1.0); EOS # 0.1 10^3/uL (0.0-0.5); HEMOGLOBIN 14.3 g/dl (12.0-15.5); LYMPH # 1.6 10^3/uL (1.5-5.0); LYMPH % 26.5 % (24.0-44.0); MEAN CORPUSCULAR HEMOGLOBIN 30.3 pg (27.0-33.0); MEAN CORPUSCULAR HGB CONC 32.5 g/dl (32.0-36.5); MEAN CORPUSCULAR VOLUME 93.2 fl (80.0-96.0); MONO # 0.5 10^3/uL (0.0-0.8); MONO % 7.9 % (2.0-8.0); NEUTROPHILS # 3.7 10^3/uL (1.5-8.5); NEUTROPHILS % 62.2 % (36.0-66.0); PLATELET COUNT, AUTOMATED 257 10^3/uL (150-450); RED BLOOD COUNT 4.72 10^6/uL (4.00-5.40); WHITE BLOOD COUNT 5.9 10^3/uL (4.0-10.0)
[2020-12-04 12:43] LABS: ALBUMIN 4.2 GM/DL (3.2-5.2); ALT/SGPT 39 U/L (12-78); BILIRUBIN,TOTAL 0.5 MG/DL (0.2-1.0); BLOOD UREA NITROGEN 18 MG/DL (7-18); CALCIUM LEVEL 9.5 MG/DL (8.8-10.2); CARBON DIOXIDE LEVEL 29 MEQ/L (21-32); CHLORIDE LEVEL 109 MEQ/L (98-107); CREATININE FOR GFR 0.68 MG/DL (0.55-1.30); GLOMERULAR FILTRATION RATE > 60.0 (>39); GLUCOSE, FASTING 113 MG/DL (70-100); LIPASE 105 U/L (73-393); POTASSIUM SERUM 4.3 MEQ/L (3.5-5.1); SODIUM LEVEL 143 MEQ/L (136-145); TOTAL PROTEIN 7.1 GM/DL (6.4-8.2)
[2020-12-04 13:21] LABS: CA 125 5.4 U/ML (<30.2)
[2020-12-04 14:01] LABS: H PYLORI QUALITATIVE IgG NEGATIVE (NEGATIVE)
== END ==
LOC: M LAB 10:47
PROVIDERS: ATTEND Family Medicine
DX: R14.0 Abdominal distension (gaseous) (principal)

== ENCOUNTER → 2021-04-15 | Outpatient (CLI) | payer MEDICARE ==
[~2021-04-15] MED LIST changes: -LISI2.5T2 PO; +LISI2.5T9 PO
[2021-04-15 13:40] LABS: BASO # 0.1 10^3/uL (0.0-0.2); BASO % 1.4 % (0.0-1.0); EOS # 0.1 10^3/uL (0.0-0.5); EOS % 2.3 % (0.0-3.0); HEMATOCRIT 43.3 % (36.0-47.0); LYMPH # 1.1 10^3/uL (1.5-5.0); LYMPH % 25.2 % (24.0-44.0); MEAN CORPUSCULAR HEMOGLOBIN 30.4 pg (27.0-33.0); MEAN CORPUSCULAR HGB CONC 32.3 g/dl (32.0-36.5); MEAN CORPUSCULAR VOLUME 93.9 fl (80.0-96.0); MONO # 0.4 10^3/uL (0.0-0.8); MONO % 9.2 % (2.0-8.0); NEUTROPHILS # 2.7 10^3/uL (1.5-8.5); NEUTROPHILS % 61.7 % (36.0-66.0); PLATELET COUNT, AUTOMATED 248 10^3/uL (150-450); RED BLOOD COUNT 4.61 10^6/uL (4.00-5.40); WHITE BLOOD COUNT 4.4 10^3/uL (4.0-10.0)
[2021-04-15 14:53] LABS: MALB URINE SIEMENS 22.9 MG/L
[2021-04-15 15:46] LABS: ALT/SGPT 35 U/L (12-78); BILIRUBIN,TOTAL 0.4 MG/DL (0.2-1.0); BLOOD UREA NITROGEN 14 MG/DL (7-18); CALCIUM LEVEL 9.4 MG/DL (8.8-10.2); CARBON DIOXIDE LEVEL 29 MEQ/L (21-32); CHLORIDE LEVEL 109 MEQ/L (98-107); CHOLESTEROL LEVEL 184 MG/DL (<200); CHOLESTEROL RISK RATIO 3.285 (<5); CREATININE FOR GFR 0.75 MG/DL (0.55-1.30); GLOMERULAR FILTRATION RATE > 60.0 (>39); GLUCOSE, FASTING 147 MG/DL (70-100); HDL CHOLESTEROL 56 MG/DL (>40); LDL CHOLESTEROL 106 MG/DL (<100); NON-HDL-C 128 MG/DL; POTASSIUM SERUM 4.3 MEQ/L (3.5-5.1); PTH INTACT 74.1 PG/ML (18.5-88.0); SODIUM LEVEL 142 MEQ/L (136-145); TOTAL 25(OH) VITAMIN D 58.6 NG/ML (30.0-100.0); TOTAL PROTEIN 6.9 GM/DL (6.4-8.2); TRIGLYCERIDES LEVEL 111 MG/DL (<150)
[2021-04-15 18:04] LABS: HEMOGLOBIN A1c 6.6 %
== END ==
LOC: M PLALAB 09:26
PROVIDERS: ATTEND Family Medicine
DX: E11.9 Type 2 diabetes mellitus without complications (principal)

== ENCOUNTER → 2021-06-29 | Outpatient (CLI) | payer MEDICARE ==
[~2021-06-29] MED LIST changes: +GLIM1TAB4 PO; +RAMI1CAP22 PO; +REST0.05 OU
== END ==
LOC: M LABSMTC 09:03
PROVIDERS: ATTEND Anesthesiology
DX: Z01.812 Encounter for preprocedural laboratory examination (principal); Z11.52 Encounter for screening for COVID-19

== ENCOUNTER 2021-07-04 06:50 | Day surgery (SDC) | payer MEDICARE ==
[~2021-07-04] VITALS: Ht 167.6 cm; Wt 67.6 kg
[~2021-07-04 06:50] MED LIST changes: +NS 1,000 ML IV ONE
--- OUTSIDE RECORDS SUMMARY | 2021-07-04 06:55 | CCD ---
Author Author [facility] Organization [facility] Address Unknown Phone Unavailable Care Team Providers Care School Aide Name Role Phone Farhan Akhtar Unavailable PROBLEMS Type Condition ICD9-CM Code [id number] Code Onset Dates Condition S tatus W/U Status Risk SNOMED Code Notes Problem T2DM (type 2 diabetes mellitus) E11.9 Active confi rmed 56565228 Problem Vaginal candidiasis B37.3 Active confirmed 23068251 Problem Hyperlipidemia E78.5 Active confirmed 70380 004 Problem Vitamin D deficiency E55.9 Active confirmed 71297521 Problem Periodic limb movement G47.61 Active confirmed 060977661 Problem Hypertension I10 Active confirmed 7497657 3 Problem Osteoarthritis of knees, bilateral M17.0 Activ e confirmed 551916861 Problem Rosacea L71.9 Active confirmed 513676477 Problem Overweight E66.3 Active confirmed 133547328 Problem ALEXA (obstructive sleep apnea) G47.33 Active confirm ed 49992973 Problem Breast cancer screening Z12.39 Active confirmed 031703841 Problem Gastroesophageal reflux disease without esophagitis K21.9 Active confirmed 150142295 Problem Vitamin B12 deficiency E53.8 Active confirmed 840896342 Problem FH: colon cancer Z80.0 Active confirmed 312 635855 Problem Keratoconjunctivitis sicca M35.01 Active confirmed 178656066 Problem Colon cancer screening Z12.11 Active confirmed 162664033 Problem Chronic non-seasonal allergic rhinitis, unspecified trigge r J30.89 Active confirmed 65930296 Problem Elevated blood pressure reading without diagnosi s of hypertension R03.0 Active confirmed 878224924 Problem Lichen simplex chronicus L28.0 Active confirmed 08103771 ALLERGIES Allergen (clinical drug ingredient) Drug/Non Drug Allergy do cumented on EMR Reaction Allergy Type Onset Date Status canagliflozin Invokana([facility] Code:[address]-71) yeast infection Drug A llergy Active ENCOUNTERS from 1950 to 2021-04-19 Encounter Location Date Provider [facility] [address] [phone] [place] [address] 16 Apr, 2021 Farhan Hermilo Abdominal bloating R14.0 ; G astroesophageal reflux disease without esophagitis K21.9 ; T2DM (type 2 diabetes mellitus) E11.9 ; Lichen simplex chronicus L28.0 ; Hypertension I10 ; FH: colon cancer Z80.0 ; Chronic non- seasonal allergic rhinitis, unspecified trigger J30.89 ; Hyperlipidemia E78.5 ; Rosacea L71.9 ; Vaginal candidiasis B37.3 ; Periodic limb movement G47.61 ; Vitamin D deficiency E55.9 ; Osteoarthritis of knees, bilateral M17.0 ; Overweight E66.3 ; Breast cancer screening Z12.39 ; Keratoconjunctivitis sicca M35.01 ; Vitamin B12 deficiency E53.8 ; ALEXA (obstructive sleep apnea) G47.33 and Colon cancer screening Z12.11 IMMUNIZATIONS Vaccine Route Administration Date Status Influenza (High Dose 65 & up) IM Intramuscular Jun 30, 2016 A dministered Influenza 6mo & up Fluzone IM Intramuscular Jul 21, 2014 Admi nistered Influenza 6mo & up Fluzone IN intranasal Aug 31, 2012 Admin istered Influenza 6mo & up Fluzone IM Intramuscular Jul 18, 2011 Admi nistered Influenza 6mo & up Fluzone IM Intramuscular Jul 25, 2010 Admi nistered SOCIAL HISTORY Tobacco Use: Social History Observation Description Date Details (start date - stop date) Never Smoker Sex Assigned At : Social History Observation Description Sex Assigned At Unknown Language: Question Answer Notes Languages spoken: Spanish Congregation: Question Answer Notes Congregation [employer] Sexual Hx: Question Answer Notes Had sex in the last 12 months (vaginal, oral, or anal)? No Have you ever had an STD? No Alcohol Screening: Question Answer Notes Did you have a drink containing alcohol in the past year? No Points 0 Interpretation Negative BMI Care Goal Follow-Up Question Answer Notes Above Normal BMI Follow-Up Giving encouragement to exercise Tobacco Use: Question Answer Notes Are you a: never smoker REASON FOR REFERRAL No Information VITAL SIGNS Weight 160.0 lbs Apr, Weight-kg 72.58 kg Apr, Height 66.5 in Apr, BMI 25.44 kg/m2 Apr, Heart Rate 109 /min Apr, Respiratory Rate 18 /min Apr, Temperature 97 degrees Fahrenheit Apr, Oximetry 98% Apr, Blood pressure systolic 140 mm Hg Apr, Blood pressure diastolic 82 mm Hg Apr, MEDICATIONS Medication SIG (Take, Route, Frequency, Duration) Notes Start Da te End Date Status Restasis 0.05 % 1 into affected eye Ophthalmic Twice a day Active Rosuvastatin Calcium 5 MG 1 tablet Orally Once a day for 90 day(s) Active Vitamin D 25 MCG (1000 UT) 1 tablet Orally Once a day Active Blood Glucose Test one 1 strip subcutaneously Twice a day Dx : 250 for 90 day(s) Active metFORMIN HCl ER 500 MG 1 tab Orally Daily for 90 day(s) Active Lancets - OneTouch Verio 1 lancet In Vitro Daily for 90 day(s) Nov, Active Glimepiride 1 MG 1 tab Orally AC BID for 90 day(s) Active MiraLax 17 GM/SCOOP as directed Orally Once a day Active Ramipril 2.5 MG 1 capsule Orally bid for 90 day(s) Active metFORMIN HCl ER 500 MG 1 tab Orally Daily for 90 Active Polyethylene Glycol - 8 mg orally in 8 oz fluid daily for 90 day (s) Apr, Active Simethicone 125 MG 1 tablet after meals and at bedtime Orally Four times a day for 90 day(s) Apr, Active Sarna 0.5-0.5 % 1 application to affected ar ea as needed Externally every 2 hours prn itch for 30 day(s) Act christiano OneTouch Verio - use 1 strip two times a day _ bid for 90 day(s) Active Tums Ultra 1000 1000 MG 1 tablet Orally bid for 30 day(s) Active Vitamin B 12 1000 mg 1 cap(s) Orally Once a day Active PROCEDURES No Information RESULTS No Results REASON FOR VISIT 4M, BW 1W prior MEDICAL (GENERAL) HISTORY Type Description Date Medical History T2DM NID Medical History hypertension-October 2010 [id number] s Medical History hyperlipidemia 2B Medical History obstructive sleep apnea, sev ere-follows with Dr. Pinto-12/2010 NPSG palliated at 18/06 Medical History IBS, mixed type Medical History chronic MDD/[place] Medical History peripheral edema secondary to venous ins ufficiency Medical History insomnia Medical History vasomotor symptoms Medical History B12 deficiency Medical History eczema, chronic Medical History allergic rhinitis Medical History bilateral knee osteoarthriti s/cervical DJD-February 2008 negative rheumatological workup Medical History obesity Medical History vitamin D deficiency Medical History fibromyalgia Medical History R first [facility]MC (basal) joint os teoarthritis (stage [address] Jo 04/2012), hamate osteophytosis by MRI 01/2012 Medical History ALEXA Medical History OU moderate-severe keratoconjunctivitis sicca Medical History GERD Surgical History NISREEN/BSO 1994 Surgical History ONE OVARY REMOVED WITH TUBAL PREG. AGE [age] Surgical History cholecystectomy 1970 Surgical History appendectomy AGE 10 Surgical History colonoscopy-normal June 2003 Surgical History right [facility] [facility] [place] 12/18 Surgical History Left cataract removal-[facility] [address] 8 Hospitalization History none Goals Section No Information Health Concerns No Information MEDICAL EQUIPMENT No Information MENTAL STATUS No Information FUNCTIONAL STATUS No Information ASSESSMENTS Encounter Date Diagnosis Assessment Notes Treatment Notes Treatm ent Clinical Notes Apr, Abdominal bloating (ICD-10 - R14.0) favor 2 IBS mixed type, aerophagia c nasal ALEXA C: nasal mask (suggested eCurvware), probiotic 04/18/21 decreased PG to 8 QD (stop if still diarrhea in 7D) and + simth 125 AC TID/QHS 03/23/21 Dr. Carter + PG and Metamucil-stopped Metamucil 2 increased bloating/abd pain; PG causing B7 5-6x daily; EGD/colon 12/07/20 given persistent bloatedness, diarrhea/constipation; repeat colon c christinao m bx (is do for repeat screening colonoscopy); given working dx is IBS, mixed; + nor 10 QHS but did not start 2 potential se 10/30/20 GES T12 88 minutes 10/12/20 CT AP c po/IV WNL 12/04/20 stable CBCD, CMP, CRP 0.3, -H pylori Ab, lipase 105, CA125 5, -TTG, trypsin 285 09/27/20 given persistent generalized abdominal bloating c intermittent LLQ pain c belching moreso ~1-2H PP c failure of initial interventions and WNL BW; check CT AP and instructed to avoid gas-containing foods: especially cabbage, broccoli, onion, wheat, potatoes, brussel sprouts. Encouraged LOW FODMAP diet- gave hand-out. Continue to avoid gum chewing and carbonation 09/06/20 3W ho decreased BM frequency to QOD and generalized abdominal bloatedness worse QHS with AXR non-specific gas pattern; therefore, trial off met XR 500 QD (s improvement) c lubipros 8 BID, but i changed to plecanatide 3 qAM (only dose) c large BMs for AM but persistant bloating/burping Apr, Gastroesophageal reflux dise ase without esophagitis (ICD-10 - K21.9) Stable on behavorial rx C: HD H2B vs esomp 07/25/20 px dc panto given what she feels was drug reaction ~4H p taking generalized abdominal pain, sweating, dizziness 10/06/19 given persistent PP din CARLOS for 1-2H on ran 75 s red flag sx; changed to panto 40 qAM x 8W Apr, T2DM (type 2 diabetes mellitus) (ICD-10 - E11.9) Stable on glim 1 at 8, 2 at 18 and met XR 500 AC dinner Contingency: met XR 500 QD maximal tolerable daily dose; push glim, Trulicity/Tresiba intolerance to By[place], Invokana, Januvia 25-all cause intolerable nausea//glim caused weight gain/acarbose 25 TID bloating patient follows closely c FTS attempting to maintain 15-30 gm CBH qmeal 04/15/21 6.6 08/07/20 6.6 (91, 15) 10/06/19 given AC br 160-200, but AC din 120 s hypos; increased glim at 18 from 1 to 2 and changed both met and glim to AC din 04/2019 7.4 06/2018 6.7 01/2018 6.9, but constant diarrhea; therefore, decreased 1000 XR BID to 750 XR BID, then to 750 AC dinner c + glim 1 BID c resolved diarrhea 10/2017 7.8; therefore, metformin XR 500 AC BID sequentally to 1000 BID and gave new Flex 06/2017 7.2; patient prefers to improve c diet 10/2016 7.5; therefore, increased metformin XR 500 qAC dinner to AC BID 06/2016 7.2 04/2016 SS added Januvia 25 (intolerant to in past-but stopped again 2 N and rhinitis) 03/2016 SS added metformin 250 AC BID-05/2016 changed to XR 500 AC dinner (intolerant to in past) 02/2016 7.4; therefore, started Precose 25 BID, but stopped 2 abdominal bloating/cramping 10/2015 held Invokana 300 qnoon as per vaginal candidiasis 08/2015 7.9, therefore gave literature regarding Trulicity 0.75 qW and referred back to Franchesca 08/17/20 14 11/2018 25 06/2018 30 10/2017 11 02/2016 12 01/2013 16 11/2011 MARILU/creatinine 4 08/[address] Prado 08/2017 normal 5.07 MF BLE Apr, Lichen simplex chronicus (ICD-10 - L28.0) chronic upper back mainly QHS 11/2018 advised to avoid scratching, ice/Sarna prn, Cetaphil BID Contingency: TA 0.5 QHS prn Apr, Hypertension (ICD-10 - I10) Stable on addie 2.5 BID 04/15/21 14/0.8, 4.3 11/2018 4.5, 0.7 06/2017 3.9, 0.7 10/2015 patient stopped ramipril 5 qAM to "cleanse herself" 08/2015 4.1, 0.8 01/2013 Altace 5 qd started 06/2011 EKG with inferior repolarization abnormalities Apr, FH: colon cancer (ICD-10 - Z80.0) has refused repeat colon 1DR brother dx c colon cancer in mid 60s Apr, Chronic non-seasonal allergi c rhinitis, unspecified trigger (ICD-10 - J30.89) Stable on current regimen c AD ETD 06/2017 encouraged to start OTC loratadine 10 QD-defers nasal steroid Apr, Hyperlipidemia (ICD-10 - E78.5) 04/15/21 106/56/111 10/2019 75/52/135 04/2019 75/54/196, 53, <0.3 on rosuva 5 11/2018 193/50/230, CPK 55; therefore, AGAIN recommended to restart rosuva 5 06/2018 188/51/154, 125, <0.3; therefore, AGAIN recommended to restart rosuva 5 01/2018 166/49/163 taking rosuva 5 ~QOD; therefore, encouraged compliance 06/2017 204/55/214, 41, <0.3 on RYR 300 BID (advised this functionly works like a low dose lovastatin); off statin x 2M given "concern of side effects"-offered CCS to risk quantify 10/2016 100/52/153, 67, <0.3 on rosuva 5 06/2016 non 224/49/407; therefore, rosuva 5 QD (patient deferred 10) 04/2019 normal LFTs 04/2019 2.3, 0.8, TPO 43 10/2016 2.2, 0.9, -TPO/TG Ab 03/2015 1.9 01/2013 TSH 1.6 Apr, Rosacea (ICD-10 - L71.9) Stable off medications Contingency: LD retinoid, doxy 50 QD-? occular rosacea component (does see Mayito) 10/2015 changed to BenzaClin 1/5% gel qhs given loss of effect of MetroCream since ~07/2015 MetroCream qhs started improvement Apr, Vaginal candidiasis (ICD-10 - B37.3) No recurrent symptoms repeated fluconazole 150 10D holding Invokana 300 08/2015 fluconazole 150 QD 10D c improved symptoms s clearance 05/2015 vaginal candidiasis flare p PCN from UC and Invokana Apr, Periodic limb movement (ICD-10 - G47.61) Stable off medications 10/2015 stopped clonazepam 0.[address] Pinto Apr, Vitamin D deficiency (ICD-10 - E55.9) 1-2 servings dietary calcium Contingency: calcitriol 04/15/21 59, 9.4, 74 10/2019 63, 8.9, 67 on D3 1K, CC 1000 BID 06/2018 49, 8.7, 104 01/2018 48, 8.4, 92; therefore, increased 1000 QD to BID 10/2017 81, 8.7, 116; therefore, + Tums 1000 BID recheck BMD 10/2021 BMD 0/-0.5/2.5 c -7/10/5% change c/w 09/2011; therefore, CCR 16 Apr, 2021 Osteoarthritis of knees, bilateral (ICD-10 - M17 .0) Stable on home PT 10/2015 stopped Mobic 15 QD prn to cleanse self 07/2014 restarted Mobic 15 qd prn flares 12/2011 patient discontinued Mobic 15 daily Improved c Synvisc by NCOG 2012, but repeat 2013 s benefit 11/2014 - H pylori Ab Apr, Overweight (ICD-10 - E66.3) Encouraged weight loss Apr, Breast cancer screening (ICD-10 - Z12.39) 10/2017 B C2 mammogram 06/2018, 11/2018, 10/2019, 08/2020, 12/20/20, 04/18/21 gave mammo order Apr, Keratoconjunctivitis sicca (ICD-10 - M35.01) Stable on current regimen follows with Dr. JAMISON Apr, Vitamin B12 deficiency (ICD-10 - E53.8) 04/15/21 14, 94 10/2019 14.7, 91, r36/0.9 10/2017 15.2, 89 09/2013 14.8 03/2012 14.8 07/2011 hemoglobin stable at 13.7 10/2019 682 04/2019 515 01/2018 788 03/2015 444 12/2012 463 07/2011 B12 438 01/2018 720 03/2015 595 07/2011 RBC folate 709 Apr, ALEXA (obstructive sleep apnea) (ICD-10 - G47.33) Encouraged compliance c BIPAP 16/[address] Pinto Apr, Colon cancer screening (ICD-10 - Z12.11) 12/07/20 now consents to repeat colon as per bloat Apr, Other Prevention Guide lines, Women Ages 65 and Older material was printed PLAN OF TREATMENT Medication Medication Name Sig Start Date Stop Date Glimepiride 1 MG 1 tab Orally AC BID for 90 day(s) OneTouch Verio - use 1 strip two times a day _ bid for 90 day(s) Blood Glucose Test one 1 strip subcutaneously Twice a day Dx : 250 for 90 day(s) metFORMIN HCl ER 500 MG 1 tab Orally Daily for 90 day(s) Sarna 0.5-0.5 % 1 application to affected ar ea as needed Externally every 2 hours prn itch for 30 day(s) MiraLax 17 GM/SCOOP as directed Orally Once a day Simethicone 125 MG 1 tablet after meals and at bedtime Orally Four times a day for 90 day(s) Apr, Tums Ultra 1000 1000 MG 1 tablet Orally bid for 30 day(s) Ramipril 2.5 MG 1 capsule Orally bid for 90 day(s) Vitamin D 25 MCG (1000 UT) 1 tablet Orally Once a day Polyethylene Glycol - 8 mg orally in 8 oz fluid daily for 90 day(s) Apr, Rosuvastatin Calcium 5 MG 1 tablet Orally Once a day for 90 day( s) Vitamin B 12 1000 mg 1 cap(s) Orally Once a day Restasis 0.05 % 1 into affected eye Ophthalmic Twice a day Treatment Notes Assessment Notes Clinical Notes Overweight Encouraged weight lo ss Abdominal bloating favor 2 IBS mixed ty pe, aerophagia c nasal OSAC: nasal mask (suggested eCurvware), probiotic04/18/21 decreased PG to 8 QD (stop if still diarrhea in 7D) and + simth 125 AC TID/QHS03/23/21 Dr. Carter + PG and Metamucil-stopped Metamucil 2 increased bloating/abd pain; PG causing B7 5-6x daily; EGD/colon12/07/20 given persistent bloatedness, diarrhea/constipation; repeat colon c random bx (is do for repeat screening colonoscopy); given working dx is IBS, mixed; + nor 10 QHS but did not start 2 potential se10/30/20 GES T12 88 minutes10/12/20 CT AP c po/IV WNL12/04/20 stable CBCD, CMP, CRP 0.3, -H pylori Ab, lipase 105, CA125 5, -TTG, trypsin given persistent generalized abdominal bloating c intermittent LLQ pain c belching moreso ~1-2H PP c failure of initial interventions and WNL BW; check CT AP and instructed to avoid gas- containing foods: especially cabbage, broccoli, onion, wheat, potatoes, brussel sprouts. Encouraged LOW FODMAP diet-gave hand-out. Continue to avoid gum chewing and carbonation09/06/20 3W ho decreased BM frequency to QOD and generalized abdominal bloatedness worse QHS with AXR non-specific gas pattern; therefore, trial off met XR 500 QD (s improvement) c lubipros 8 BID, but i changed to plecanatide 3 qAM (only dose) c large BMs for AM but persistant bloating/burping Osteoarthritis of knees, bilateral Stabl e on home PT10/2015 stopped Mobic 15 QD prn to cleanse self07/2014 restarted Mobic 15 qd prn flares12/2011 patient discontinued Mobic 15 dailyImproved c Synvisc by NCOG 2012, but repeat 2013 s benefit11/2014 - H pylori Ab Gastroesophageal reflux disease without esophagitis Stable on behavorial rxC: HD H2B vs esomp07/25/20 px dc panto given what she feels was drug reaction ~4H p taking generalized abdominal pain, sweating, dizziness10/06/19 given persistent PP din CARLOS for 1-2H on ran 75 s red flag sx; changed to panto 40 qAM x 8W Keratoconjunctivitis sicca Stable on cur rent regimenfollows with Dr. JAMISON T2DM (type 2 diabetes mellitus) Stable o n glim 1 at 8, 2 at 18 and met XR 500 AC dinnerContingency: met XR 500 QD maximal tolerable daily dose; push glim, Trulicity/Tresibaintolerance to By[place], Thomas, Januvia 25-all cause intolera ble nausea//glim caused weight gain/acarbose 25 TID bloatingpatient follows closely c FTS attempting to maintain 15-30 gm CBH qmeal04/15/21 6.61/12/21 6.6 (91, 15)10/06/19 given AC br 160-200, but AC din 120 s hypos; increased glim at 18 from 1 to 2 and changed both met and glim to AC din04/2019 7. 6. 6.9, but constant diarrhea; therefore, decreased 1000 XR BID to 750 XR BID, then to 750 AC dinner c + glim 1 BID c resolved diarrhea10/2017 7.8; therefore, metformin XR 500 AC BID sequentally to 1000 BID and gave new Flex06/2017 7.2; patient prefers to improve c diet10/2016 7.5; therefore, increased metformin XR 500 qAC dinner to AC BID06/2016 7. SS added Januvia 25 (intolerant to in past-but stopped again 2 N and rhinitis)03/2016 SS added metformin 250 AC BID- 05/2016 changed to XR 500 AC dinner (intolerant to in past)02/2016 7.4; therefore, started Precose 25 BID, but stopped 2 abdominal bloating/cramping10/2015 held Invokana 300 qnoon as per vaginal candidiasis08/2015 7.9, therefore gave literature regarding Trulicity 0.75 qW and referred back to Nicole08/17/20 144/2018 25108/2017 303/2018 1172016 127/2012 164/2011 MARILU/creatinine no DMR Dr. Prado08/2017 normal 5.07 MF BLE Breast cancer screening 10/2017 B C2 mamm ogram06/2018, 11/2018, 10/2019, 08/2020, 12/20/20, 04/18/21 gave mammo order Lichen simplex chronicus chronic upper b ack mainly QHS11/2018 advised to avoid scratching, ice/Sarna prn, Cetaphil BIDContingency: TA 0.5 QHS prn ALEXA (obstructive sleep apnea) Encouraged compliance c BIPAP 16/05follows with Dr. Pinto Hypertension Stable on addie 2.5 BI D04/15/21 14/0.8, 4. 4.5, 0.711 3.9, 0. patient stopped ramipril 5 qAM to "cleanse herself"08/2015 4.1, 0. Altace 5 qd /2011 EKG with inferior repolarization abnormalities Vitamin B12 deficiency 04/15/21 14, 943/2 020 14.7, 91, r36/0. 15.2, 892/2013 14. 14.812 hemoglobin stable at 13. 6829 51501/2018 78/2014 4445/2012 36761 B12 /2010 RBC folate 709 FH: colon cancer has refused repeat c vasx1CS brother dx c colon cancer in mid 60s Chronic non-seasonal allergic rhinitis, unspecified trigger Stable on current regimenc AD ETD108/2016 encouraged to start OTC loratadine 10 QD-defers nasal steroid Colon cancer screening 12/07/20 now consen ts to repeat colon as per bloat Vitamin D deficiency 1-2 servings dietar y calciumContingency: calcitriol04/15/21 59, 9.4, 7410/2019 63, 8.9, 67 on D3 1K, CC 1000 BID06/2018 49, 8.7, 1047 48, 8.4, 92; therefore, increased 1000 QD to BID10/2017 81, 8.7, 1 16; therefore, + Tums 1000 BIDrecheck BMD BMD 0/-0.5/2.5 c -02/09/% change c/w 09/2011; therefore, CCR Periodic limb movement Stable off medica tions10/2015 stopped clonazepam 0.[address] Pinto Hyperlipidemia 04/15/21 106// 2020 75/54/196, 53, <0.3 on rosuva 193/50/230, CPK 55; therefore, AGAIN recommended to restart rosuva 188/51/154, 125, <0.3; therefore, AGAIN recommended to restart rosuva 166/49/163 taking rosuva 5 ~QOD; therefore, encouraged kcyuhxeimv37/2017 204/55/214, 41, <0.3 on RYR 300 BID (advised this functionly works like a low dose lovastatin); off statin x 2M given "concern of side effects"-offered CCS to risk quantify10/2016 100/52/153, 67, <0.3 on rosuva non 224/49/407; therefore, rosuva 5 QD (patient deferred 10)04/2019 normal LFTs04/2019 2.3, 0.8, TPO 2.2, 0.9, -TPO/TG Ab03/2015 1. TSH 1.6 Rosacea Stable off medicatio nsContingency: LD retinoid, doxy 50 QD-? occular rosacea component (does see Mayito)10/2015 changed to BenzaClin 1/5% gel qhs given loss of effect of MetroCream since ~ MetroCream qhs started improvement Vaginal candidiasis No recurrent symptom s3/016 repeated fluconazole 150 10D holding Invokana 30008/2015 fluconazole 150 QD 10D c improved symptoms s eskqbsvbi22/2015 vaginal candidiasis flare p PCN from UC and Invokana Treatment Notes Test Name Order Date WWBC Josh Screening Bilateral (Ultrasound if Indicated ) (3D Mammo) 2021-04-18 Future Test Test Name Order Date HEMOGLOBIN A1c [id number] LIPID PANEL (CARDIAC RISK) [id number] FREE T4 & TSH PANEL [id number] VITAMIN B12 LEVEL [id number] FERRITIN [id number] CBC with Differential [id number] Comprehensive Metabolic Profile (CMP) [id number] NT-PRO BNP [id number] Next Appt Details 4M, BW 1W prior Reason: Provider Name:Farhan Akhtar, 2021-08-22 1 1:45:00 AM, [address], , [place], [address], Insurance Providers Payer Name Payer Address Payer Phone Insured Name Patient Relati onship to Insured Coverage Start Date Coverage End Date [facility] [employer] [address] [address] [facility] [address] [phone] CODIE ALDANA self
--- OUTSIDE RECORDS SUMMARY | 2021-07-04 06:55 | CCD ---
Author Author [facility] Organization [facility] Address Unknown Phone Unavailable Care Team Providers Care Shuttlecock Assembler Name Role Phone ANA FALL MD Unavailable Unavailable ANA FALL MD Unavailable Unavailable ANA FALL MD Unavailable Unavailable ANA FALL MD Unavailable Unavailable ANA FALL MD Unavailable Unavailable ANA FALL MD Unavailable Unavailable AAN FALL MD Unavailable Unavailable ANA FALL MD Unavailable Unavailable ANA FALL MD Unavailable Unavailable ANA FALL MD Unavailable Unavailable ANA FALL MD Unavailable Unavailable ANA FALL MD Unavailable Unavailable ANA FALL MD Unavailable Unavailable ANA FALL MD Unavailable Unavailable ANA FALL MD Unavailable Unavailable ANA FALL MD Unavailable Unavailable ANA FALL MD Unavailable Unavailable ANA FALL MD Unavailable Unavailable ANA FALL MD Unavailable Unavailable ANA FALL MD Unavailable Unavailable ANA FALL MD Unavailable Unavailable ANA FALL MD Unavailable Unavailable ANA FALL MD Unavailable Unavailable ANA FALL MD Unavailable Unavailable ANA FALL MD Unavailable Unavailable ANA FALL MD Unavailable Unavailable ANA FALL MD Unavailable Unavailable ANA FALL MD Unavailable Unavailable ANA FALL MD Unavailable Unavailable ANA FALL MD Unavailable Unavailable REINDL, ANA BROWN Unavailable Unavailable REINDL, ANA BROWN Unavailable Unavailable REINDL, ANA BROWN Unavailable Unavailable REINDL, ANA BROWN Unavailable Unavailable REINDL, ANA BROWN Unavailable Unavailable REINDL, ANA BROWN Unavailable Unavailable REINDL, ANA BROWN Unavailable Unavailable REINDL, ANA BROWN Unavailable Unavailable REINDL, ANA BROWN Unavailable Unavailable REINDL, ANA BROWN Unavailable Unavailable REINDL, ANA BROWN Unavailable Unavailable REINDL, AAN BROWN Unavailable Unavailable RAAD, A FELIPE DO Unavailable Unavailable RAAD, A FELIPE DO Unavailable Unavailable RAAD, A FELIPE DO Unavailable Unavailable RAAD, A FELIPE DO Unavailable Unavailable RAAD, A FELIPE DO Unavailable Unavailable RAAD, A FELIPE DO Unavailable Unavailable RAAD, A FELIPE DO Unavailable Unavailable RAAD, A FELIPE DO Unavailable Unavailable RAAD, A FELIPE DO Unavailable Unavailable RAAD, A FELIPE DO Unavailable Unavailable RAAD, A FELIPE DO Unavailable Unavailable RAAD, A FELIPE DO Unavailable Unavailable RADA, A FLEIPE DO Unavailable Unavailable RAAD, A FELIPE DO Unavailable Unavailable RAAD, A FELIPE DO Unavailable Unavailable RAAD, A FELIPE DO Unavailable Unavailable RAAD, A FELIPE DO Unavailable Unavailable RAAD, A FELIPE DO Unavailable Unavailable RAAD, A FELIPE DO Unavailable Unavailable RAAD, A FELIPE DO Unavailable Unavailable RAAD, A FELIPE DO Unavailable Unavailable RAAD, A FELIPE DO Unavailable Unavailable RADA, A FELIPE DO Unavailable Unavailable Re-disclosure Warning The records that you are about to access may contain information from federally-assisted alcohol or drug abuse programs. If such information is present, then the following federally mandated warning applies: This information has been disclosed to you from records protected by federal confidentiality rules (42 CFR part 2). The federal rules prohibit you from making any further disclosure of this information unless further disclosure is expressly permitted by the written consent of the person to whom it pertains or as otherwise permitted by 42 CFR part 2. A general authorization for the release of medical or other information is NOT sufficient for this purpose. The Federal rules restrict any use of the information to criminally investigate or prosecute any alcohol or drug abuse patient.The records that you are about to access may contain highly sensitive health information, the redisclosure of which is protected by Article 27-F of the [facility] Public Health law. If you continue you may have access to information: Regarding HIV / AIDS; Provided by facilities licensed or operated by the [facility] Office of Mental Health; or Provided by the [facility] Office for People With Developmental Disabilities. If such information is present, then the following [facility] mandated warning applies: This information has been disclosed to you from confidential records which are protected by state law. State law prohibits you from making any further disclosure of this information without the specific written consent of the person to whom it pertains, or as otherwise permitted by law. Any unauthorized further disclosure in violation of state law may result in a fine or half-way sentence or both. A general authorization for the release of medical or other information is NOT sufficient authorization for further disc losure. Allergies and Adverse Reactions Type Description Substance Reaction Status Data Source(s ) Drug allergy Invokana Invokana Active JAVI (Carter Florez MD [facility]) Drug allergy Invokana Invokana Active JAVI (Carter Florez MD [facility]) Family History Family Member Name Family Member Gender Family Member Status Date o f Status Description Data Source(s) Unknown Unknown Problem MEDENT ([facility], ) Unknown Unknown Problem MEDENT (Fuad Vasquez MD, ) Encounters Encounter Providers Location Date Indications Data Source(s ) Outpatient [address] [place] [address] [place] [address] 04/18/2021 12:00:00 AM EDT eCW1 ([facility]) Outpatient Attender: ANA Bravo/Mauricio/Chava/Shorty galicia 03/18/2021 08:45:00 AM EDT [facility] [place] [address] [place] [address] 01/28/2021 12:00:00 AM EDT eCW1 ([facility]) Outpatient [address] [place] [address] 12/07/2020 12:00:00 AM EDT eCW1 ([facility]) Unknown [address] [place] [address] [place] [address] 10/15/2020 12:00:00 AM EDT eCW1 ([facility]) Outpatient [address] [place] [address] 09/27/2020 12:00:00 AM EST eCW1 ([facility]) Unknown [address] [facility] [place] [address] 09/07/2020 12:00:00 AM EST eCW1 ([facility]) Unknown [address] [facility] [facility] [address] 09/07/2020 12:00:00 AM EST eCW1 ([facility]) Outpatient [address] [facility] [address] 09/06/2020 12:00:00 AM EST eCW1 ([facility]) Unknown [address] [facility] [address] 09/05/2020 12:00:00 AM EST eCW1 ([facility]) Outpatient [address] [facility] [place] [address] 08/16/2020 12:00:00 AM EST eCW1 ([facility]) <td ID="encounterTypeDescriptionID0">Yag Laser Capsulotomy - Global: 90 DAY POST OP</td><td>Felipe Lewis DO</td><td>Ana Coffman MD [facility]</td><td>07/10/2020</td><td>1:50PM</td><td>2:43PM</td><td><content ID="encounterDiagnosisID0-0">Pseudophakia</content>, <content ID="encounterDiagnosisID0-1">Posterior Capsule Opacification Eccentric Capsule Left Eye</content></td>Outpatient Attender: FELIPE Cheney MD [facility] 07/10/2020 01:50:00 PM EST - 07/10/2020 02:43:00 PM ES T Posterior Capsule Opacification Eccentric Capsule Left EyePseudophakia JAVI (Ana Florez MD [facility]) Posterior Capsule Opacification Eccentri c Capsule Left Eye Pseudophakia <td ID="encounterTypeDescriptionID1">NEW PATIENT WITH REFERRAL</td><td>Felipe Lewis DO</td><td>Ana Coffman MD [facility]</td><td>06/22/2020</td><td>8:04AM</td><td>9:32AM</td><td><content ID="encounterDiagnosisID1-0">Taking Medication For Diabetes Long-term Use of Oral Hypoglycemics</content>, <content ID="encounterDiagnosisID1-1">Diabetes Mellitus Type 2 Without Complication</content>, <content ID="encounterDiagnosisID1-2">Dry Eye Syndrome</content>, <content ID="encounterDiagnosisID1-3">Pseudophakia</content>, <content ID="encounterDiagnosisID1-4">Posterior Capsule Opacification Eccentric Capsule Both Eyes</content>, <content ID="encounterDiagnosisID1-5">Vitreous Disorders Degeneration</content></td>Outpatient Attender: FELIPE Sellers MD [facility] 06/22/2020 08:04:00 AM EST - 06/22/2020 09:32:00 AM ES T Vitreous Disorders DegenerationPosterior Capsule Opacification Eccentric Capsule Both EyesPseudophakiaDry Eye SyndromeDiabetes Mellitus Type 2 Without ComplicationTaking Medication For Diabetes Long-term Use of Oral Hypoglycemics Vitreous Disorders DegenerationPosterior Capsule Opacification Eccentric Capsule Both EyesPseudophakiaDry Eye SyndromeDiabetes Mellitus Type 2 Without ComplicationTaking Medication For Diabetes Long-term Use of Oral Hypoglycemics JAVI (Ana Florez MD [facility]) Vitreous Disorders Degeneration Posterior Capsule Opacification Eccentri c Capsule Both Eyes Pseudophakia Dry Eye Syndrome Diabetes Mellitus Type 2 Without Complic ation Taking Medication For Diabetes Long-term Use of Oral Hypoglycemics Vitreous Disorders Degeneration Posterior Capsule Opacification Eccentri c Capsule Both Eyes Pseudophakia Dry Eye Syndrome Diabetes Mellitus Type 2 Without Complic ation Taking Medication For Diabetes Long-term Use of Oral Hypoglycemics Unknown [address] [facility] [address] 06/11/2020 12:00:00 AM EST eCW1 ([facility]) Unknown [address] [facility] [address] 05/09/2020 12:00:00 AM EDT eCW1 ([facility]) Medications Medication Brand Name Start Date Product Form Dose Route Admi nistrative Instructions Pharmacy Instructions Status Indications Reaction Description Data Source(s) BLOOD SUGAR DIAGNOSTIC 06/22/2021 12:00:00 AM EST strip 100 USE ONE STRIP TWO TIMES A DAY USE ONE STRIP TWO TIMES A DAY SOLD: 06/23/2021 [facility] 2.5 mg 04/18/2021 12:00:00 AM EDT capsule 180 TAKE ONE CAPSULE BY MOUTH TWO TIMES A DAY TAKE ONE CAPSULE BY MOUTH TWO TIMES A DAY SOLD: 04/21/2021 [facility] 24 HR Metformin hydrochloride 500 MG Extended Release Oral T ablet METFORMIN HCL 04/18/2021 12:00:00 AM EDT tablet extended release 24 hr 90 TAKE ONE TABLET BY MOUTH DAILY TAKE ONE TABLET BY MOUTH DAILY SOLD: 04/21/2021 [facility] Simethicone 125 MG Simethicone 125 MG 04/18/2021 12:00:00 AM EDT active Simethicone 125 MG W1 ([facility]) Polyethylene Glycol - Polyethylene Glycol - 04/18/2021 12:00:00 AM EDT active Polyethylene Glycol - eCW1 ( [facility]) 5 mg 04/18/2021 12:00:00 AM EDT tablet 90 TAKE ONE TABLET BY MOUTH DAILY TAKE ONE TABLET BY MOUTH DAILY SOLD: 04/21/2021 [facility] POLYETHYLENE GLYCOL 3350 142 MG/ML Oral Solution [Miralax] M iralax 03/18/2021 12:00:00 AM EDT completed MEDENT ([facility], ) magnesium citrate 58.2 MG/ML Oral Solution Magnesium Citrate 03/18/2021 12:00:00 AM EDT active MEDENT ([facility], ) POLYETHYLENE GLYCOL 3350 142 MG/ML Oral Solution [Miralax] M iralax 03/18/2021 12:00:00 AM EDT active M EDENT ([facility], ) glimepiride 1 MG Oral Tablet GLIMEPIRIDE 02/27/2021 12:00:00 AM EDT t ablet 180 TAKE ONE TABLET BY MOUTH TWO TIMES A DAY BEFORE MEALS TAKE ONE TABLET BY MOUTH TWO TIMES A DAY BEFORE MEALS SOLD: 05/27/2021 [facility] glimepiride 1 MG Oral Tablet GLIMEPIRIDE 02/27/2021 12:00:00 AM EDT t ablet 180 TAKE ONE TABLET BY MOUTH TWO TIMES A DAY BEFORE MEALS TAKE ONE TABLET BY MOUTH TWO TIMES A DAY BEFORE MEALS SOLD: 02/28/2021 [facility] 0.05 % 01/22/2021 12:00:00 AM EDT dropperette 180 INSTILL ONE DROP INTO EACH EYE TWO TIMES A DAY INSTILL ONE DROP INTO EACH EYE TWO TIMES A DAY SOLD: 01/24/2021 [facility] BLOOD SUGAR DIAGNOSTIC 12/07/2020 12:00:00 AM EDT strip 150 USE 1 STRIP TWO TIMES A DAY USE 1 STRIP TWO TIMES A DAY SOLD: 03/15/2021 [facility] Nortriptyline 10 MG Oral Capsule Nortriptyline HCl 10 MG Nortriptyline HCl 10 MG 12/07/2020 12:00:00 AM EDT 1.0 {capsule} acti ve Nortriptyline HCl 10 MG eCW1 ([facility]) BLOOD SUGAR DIAGNOSTIC 12/07/2020 12:00:00 AM EDT strip 150 USE 1 STRIP TWO TIMES A DAY USE 1 STRIP TWO TIMES A DAY SOLD: 12/09/2020 [facility] Nortriptyline 10 MG Oral Capsule Nortriptyline HCl 10 MG Nortriptyline HCl 10 MG 12/07/2020 12:00:00 AM EDT 1.0 {capsule} acti ve Nortriptyline HCl 10 MG eCW1 ([facility]) 2.5 mg 10/25/2020 12:00:00 AM EDT capsule 180 TAKE ONE CAPSULE BY MOUTH TWICE A DAY TAKE ONE CAPSULE BY MOUTH TWICE A DAY SOLD: 10/26/2020 [facility] 2.5 mg 10/25/2020 12:00:00 AM EDT capsule 180 TAKE ONE CAPSULE BY MOUTH TWICE A DAY TAKE ONE CAPSULE BY MOUTH TWICE A DAY SOLD: 01/31/2021 [facility] 5 mg 10/24/2020 12:00:00 AM EDT tablet 90 TAKE ONE TABLET BY MOUTH DAILY TAKE ONE TABLET BY MOUTH DAILY SOLD: 01/31/2021 [facility] 5 mg 10/24/2020 12:00:00 AM EDT tablet 90 TAKE ONE TABLET BY MOUTH DAILY TAKE ONE TABLET BY MOUTH DAILY SOLD: 10/26/2020 [facility] Trulance 3 MG Trulance 3 MG 09/07/2020 12:00:00 AM EST 1.0 {tabl et} active Trulance 3 MG eCW1 ([facility]) 3 mg 09/07/2020 12:00:00 AM EST tablet 30 TAKE ONE TABLET BY MOUTH EVERY MORNING TAKE ONE TABLET BY MOUTH EVERY MORNING SOLD: 09/07/2020 [facility] Trulance 3 MG Trulance 3 MG 09/07/2020 12:00:00 AM EST 1.0 {tabl et} active Trulance 3 MG eCW1 ([facility]) Trulance 3 MG Trulance 3 MG 09/07/2020 12:00:00 AM EST 1.0 {tabl et} active Trulance 3 MG eCW1 ([facility]) Trulance 3 MG Trulance 3 MG 09/07/2020 12:00:00 AM EST 1.0 {tabl et} active Trulance 3 MG eCW1 ([facility]) Trulance 3 MG Trulance 3 MG 09/07/2020 12:00:00 AM EST 1.0 {tabl et} active Trulance 3 MG eCW1 ([facility]) Trulance 3 MG Trulance 3 MG 09/07/2020 12:00:00 AM EST 1.0 {tabl et} active Trulance 3 MG eCW1 ([facility]) 3 mg 09/07/2020 12:00:00 AM EST tablet 30 TAKE ONE TABLET BY MOUTH EVERY MORNING TAKE ONE TABLET BY MOUTH EVERY MORNING SOLD: 10/08/2020 [facility] glimepiride 1 MG Oral Tablet GLIMEPIRIDE 08/17/2020 12:00:00 AM EST t ablet 180 TAKE ONE TABLET BY MOUTH TWICE A DAY BEFORE MEALS TAKE ONE TABLET BY MOUTH TWICE A DAY BEFORE MEALS SOLD: 11/23/2020 [facility] 24 HR Metformin hydrochloride 500 MG Extended Release Oral T ablet METFORMIN HCL 08/17/2020 12:00:00 AM EST tablet extended release 24 hr 90 TAKE ONE TABLET BY MOUTH DAILY TAKE ONE TABLET BY MOUTH DAILY SOLD: 01/05/2021 [facility] 500 mg 08/17/2020 12:00:00 AM EST tablet extended release 24 hr 90 TAKE ONE TABLET BY MOUTH DAILY TAKE ONE TABLET BY MOUTH DAILY SOLD: 08/19/2020 [facility] glimepiride 1 MG Oral Tablet GLIMEPIRIDE 08/17/2020 12:00:00 AM EST t ablet 180 TAKE ONE TABLET BY MOUTH TWICE A DAY BEFORE MEALS TAKE ONE TABLET BY MOUTH TWICE A DAY BEFORE MEALS SOLD: 08/19/2020 [facility] 5 mg 07/31/2020 12:00:00 AM EST tablet 90 TAKE ONE TABLET BY MOUTH EVERY DAY TAKE ONE TABLET BY MOUTH EVERY DAY SOLD: 08/02/2020 [facility] 2.5 mg 07/31/2020 12:00:00 AM EST capsule 180 TAKE ONE CAPSULE BY MOUTH TWICE A DAY TAKE ONE CAPSULE BY MOUTH TWICE A DAY SOLD: 08/02/2020 [facility] loteprednol etabonate 2 MG/ML Ophthalmic Suspension [Alrex] Alrex 0.2% Ophthalmic Suspension Alrex 0.2% Ophthalmic Suspension 07/10/2020 12:00:00 A M EST active lotepred nol etabonate 2 MG/ML Ophthalmic Suspension [Alrex] JAVI (Ana Florez MD [facility]) glimepiride 1 MG Oral Tablet Glimepiride 1 MG Oral Tab let Glimepiride 1 MG Oral Tablet 06/22/2020 12:00:00 AM EST 1 active glimepiride 1 MG Oral Tablet JAVI (Ana Florez MD [facility]) Rosuvastatin 5 MG Oral Tablet Rosuvastatin 5 MG Oral Tablet 06/22/2020 12:00:00 AM EST 1 active Rosuvastatin GREE NWAY (Ana Florez MD [facility]) 24 HR Metformin hydrochloride 500 MG Ext ended Release Oral Tablet metFORMIN HCl ER 500 MG Oral Tablet Extended Release 24 Hour metFORMIN HCl ER 500 MG Oral Tablet Extended Release 24 Hour 06/22/2020 12:00:00 AM EST 1 active 24 HR metformin hydrochloride 500 MG Extended Release Oral Tablet JAVI (Ana Florez MD [facility]) Ramipril 2.5 MG Oral Capsule Ramipril 2.5 MG Oral Capsule 12:00:00 AM EST 1 active ramipril 2.5 MG O ral Capsule JAVI (Ana Florez MD [facility]) B Complex Vitamins Oral Capsule B Complex Vitamins Oral Caps ule 06/22/2020 12:00:00 AM EST 1 active B Comple x Vitamins JAVI (Ana Florez MD [facility]) [facility]3 Krill Oil 500 MG Oral Capsule [facility]3 Krill Oil 500 MG Oral Capsule 06/22/2020 12:00:00 AM EST 1 active [facility]3 Krill Oil JAVI (Ana Florez MD [facility]) CHROMIUM PICOLINATE 1 MG Oral Tablet Chromium Picolina te 1000 MCG Oral Tablet Chromium Picolinate 1000 MCG Oral Tablet 06/22/2020 12:00:00 AM EST 1 active chromium picolinate 1 MG Oral Ta blet JAVI (Ana Florez MD [facility]) Cholecalciferol 5000 UNT Oral Capsule Vitamin D3 125 M CG (5000 UT) Oral Capsule Vitamin D3 125 MCG (5000 UT) Oral Capsule 06/22/2020 12:00:00 AM EST 1 active cholecalciferol 0.125 MG Oral Ca psule JAVI (Ana Florez MD [facility]) pantoprazole 40 MG Delayed Release Oral Tablet Pantoprazole Sodium 40 MG Oral Tablet Delayed Release Pantoprazole Sodium 40 MG Oral Tablet Delayed Release 06/22/2020 12:00:00 AM EST 1 active pantoprazole 40 MG Delayed Release Oral Tablet BUTNER (Ana Florez MD [facility]) V-Zyme Biotics 20 MCG Oral Tablet V-Zyme Biotics 20 MCG Oral Tablet 06/22/2020 12:00:00 AM EST 1 active V-Zyme B iotics JAVI (Ana Florez MD [facility]) Cyclosporine 0.5 MG/ML Ophthalmic Suspen tamika [Restasis] Restasis 0.05% Ophthalmic Emulsion Restasis 0.05% Ophthalmic Emulsion 06/22/2020 12:00:00 AM EST active cyclospo rine 0.5 MG/ML Ophthalmic Suspension [Restasis] JAVI (Ana Florez MD [facility]) Eetmzwe-Bvgwwojay-Eovp-D3 Oral Tablet Ksbwovq-Obtrkyymk-Bbog -D3 Oral Tablet 06/22/2020 12:00:00 AM EST 1 active Jodpqxw-Iqekavocz-Lltg-D3 JAVI (Ana Florez MD [facility]) Magnesium 400 MG Oral Tablet Magnesium 400 MG Oral Tablet 12:00:00 AM EST 1 active Magnesium GREENWA Y (Ana Florez MD [facility]) Glucosamine hydrochloride 1500 MG Oral T ablet Glucosamine HCl 1500 MG Oral Tablet Glucosamine HCl 1500 MG Oral Tablet 06/22/2020 12:00:00 AM EST 1 active glucosamine hydrochloride 1500 M G Oral Tablet JAVI (Ana Florez MD [facility]) Potassium 99 MG Oral Tablet Potassium 99 MG Oral Tablet 06/04 12:00:00 AM EST 1 active Potassium GREENWA Y (Ana Florez MD [facility]) Chondroitin Sulfate 1200 MG Oral Tablet Chondroitin Sulfate 1200 MG Oral Tablet 06/22/2020 12:00:00 AM EST 1 active Chondroitin Sulfate JAVI (Ana Florez MD [facility]) pantoprazole 40 MG Delayed Release Oral Tablet PANTOPRAZOLE SODIUM 06/12/2020 12:00:00 AM EST tablet,delayed release (DR/EC) 90 T SABRINA ONE TABLET BY MOUTH EVERY MORNING TAKE ONE TABLET BY MOUTH EVERY MORNING SOLD: 06/13/2020 [facility] 0.05 % 06/06/2020 12:00:00 AM EST dropperette 180 INSTILL 1 DROP IN EACH EYE TWO TIMES A DAY DIRECTED INSTILL 1 DROP IN EACH EYE TWO TIMES A D AY DIRECTED SOLD: 06/11/2020 [facility] glimepiride 1 MG Oral Tablet GLIMEPIRIDE 05/23/2020 12:00:00 AM EDT t ablet 270 TAKE ONE TABLET BY MOUTH EVERY MORNING A ND TAKE TWO TABLETS BY MOUTH IN THE EVENING TAKE ONE TABLET BY MOUTH EVERY MORNING A ND TAKE TWO TABLETS BY MOUTH IN THE EVENING SOLD: 05/25/2020 [facility] 500 mg 03/10/2020 12:00:00 AM EDT tablet extended release 24 hr 90 TAKE ONE TABLET BY MOUTH EVERY DAY TAKE ONE TABLET BY MOUTH EVERY DAY SOLD: 06/11/2020 [facility] BLOOD SUGAR DIAGNOSTIC 11/16/2019 12:00:00 AM EDT strip 150 USE TWO TIMES A DAY DIRECTED USE TWO TIMES A DAY DIRECTED SOLD: 09/12/2020 [facility] BLOOD SUGAR DIAGNOSTIC 11/16/2019 12:00:00 AM EDT strip 150 USE TWO TIMES A DAY DIRECTED USE TWO TIMES A DAY DIRECTED SOLD: 07/01/2020 [facility] Insurance Providers Payer name Policy type / Coverage type Policy ID Covered republican ID Covered republican's relationship to deshpande Policy Deshpande Plan Information [employer] Health Maintenance Organization (HMO) [id number] Self [id number] [facility] [id number] SP [id number] [employer] [place] PPO 302/307 [id number] SP [id number] BCBS Ppo Commercial [id number] Self [id number] [employer]BS Medigap Part B [id number] Self [id number] [facility] [id number] SP [id number] [facility] Health Maintenance Organization ([facility]) [id number] Self [id number] [facility] [id number] SP [id number] [facility] Health Maintenance Organization ([facility]) [id number] 0 [id number] Self [id number] [employer] [id number] SP [id number] ANSI-Medicare Part B [id number] ANSI-Medicare Part B [id number] ANSI-Health Maintenance Organization (HM O) [id number] ANSI-Medicare Part B [id number] ANSI-Medicare Part B [id number] ANSI-Medicare Part B [id number] ANSI-Health Maintenance Organization (HM O) [id number] [employer] [id number] SP [id number] [employer] OPTIONS [id number] [place] [id number] ANSI-Medicare Part B [id number] ANSI-Medicare Part B [id number] ANSI-Medicare Part B [id number] ANSI-Medicare Part B [id number] ANSI-Medicare Part B [id number] ANSI-Medicare Part B [id number] ANSI-Medicare Part B [id number] ANSI-Medicare Part B [id number] ANSI-Medicare Part B [id number] ANSI-Medicare Part B [id number] [employer] OPTIONS [id number] SP [id number] [employer] [id number] [place] [id number] [employer]'s Options Medicare Commercial [id number] Self [id number] [facility] Medigap Part B [id number] Self [id number] ANSI-Medicare Part B [id number] ANSI-Medicare Part B [id number] [employer]/[place] O [id number] S [id number] [employer] Commercial [id number] Self [id number] MEDICARE C [id number] S [id number] A [facility] O [id number] S [id number] [facility] CARE [id number] SP [id number] MEDICARE [id number] SP [id number] A BLUE CROSS BLUE SHIELD-O/P [id number] [employer] (HMO) [id number] Se lf BC/BS Of [place] Commercial [id number] Self MVP GOLD [id number] SP [id number] [employer] BCBS P [id number] S VYS [id number] BCBS OF [place] 306/8 P [id number] S [id number] WELLCARE [id number] SP [id number] TODAYS OPTIONSDO NOT USE [id number] SP [id number] [employer] O [id number] S [id number] ANSI-Medicare Part B [id number] ANSI-Health Maintenance Organization ( O) [id number] ANSI-Medicare Part B [id number] ANSI-Medicare Part B [id number] ANSI-Medicare Part B [id number] ANSI-Health Maintenance Organization ( O) [id number] ANSI-Medicare Part B [id number] ANSI-Health Maintenance Organization ( O) [id number] Problems, Conditions, and Diagnoses Code Display Name Description Problem Type Effective Dates Data Source(s) Z80.0 [id number] FH: colon cancer Problem 12/07/2020 12:00:00 AM EDT eCW1 ([facility]) 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 Vitreous Disorders Deg eneration Problem 06/22/2020 12:00:00 AM EST JAVI (Ana Florez MD [facility]) 375.15 Dry Eye Syndrome Dry Eye Syndrome Problem 06/22/2020 12 :00:00 AM EST JAVI (Ana Florez MD [facility]) V43.1 Pseudophakia Pseudophakia Problem 06/22/2020 12:00:00 A M EST JAVI (Ana Florez MD [facility]) 250.00 Diabetes Mellitus Type 2 Without Complic ation Diabetes Mellitus Type 2 Without Complication Problem 06/22/2020 12:00:00 AM EST JAVI (Carter Florez MD [facility]) [id number] Posterior Capsule Opacification Eccentri c Capsule Both Eyes Posterior Capsule Opacification Eccentric Capsule Both Eyes Problem 06/04 12:00:00 AM EST JAVI (Ana Florez MD [facility]) Z79.84 Taking Medication For Diabetes Long-term Use of Oral Hypoglycemics Taking Medication For Diabetes Long-term Use of Oral Hypoglycemics Problem 06/22/2020 12:00:00 AM EST JAVI (Ana Florez MD [facility]) 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 Vitreous Disorders Deg eneration Problem 06/22/2020 12:00:00 AM EST JAVI (Ana Florez MD [facility]) 375.15 Dry Eye Syndrome Dry Eye Syndrome Problem 06/22/2020 12 :00:00 AM EST JAVI (Ana Florez MD [facility]) V43.1 Pseudophakia Pseudophakia Problem 06/22/2020 12:00:00 A M EST JAVI (Ana Florez MD [facility]) 250.00 Diabetes Mellitus Type 2 Without Complic ation Diabetes Mellitus Type 2 Without Complication Problem 06/22/2020 12:00:00 AM EST JAVI (Carter Florez MD [facility]) [id number] Posterior Capsule Opacification Eccentri c Capsule Both Eyes Posterior Capsule Opacification Eccentric Capsule Both Eyes Problem 06/04 12:00:00 AM EST JAVI (Ana Florez MD [facility]) Z79.84 Taking Medication For Diabetes Long-term Use of Oral Hypoglycemics Taking Medication For Diabetes Long-term Use of Oral Hypoglycemics Problem 06/22/2020 12:00:00 AM EST JAVI (Ana Florez MD [facility]) Surgeries/Procedures Procedure Description Date Indications Data Source(s) OFFICE OUTPATIENT NEW 45 MINUTES 03/18/2021 12:00:00 A Yunior [facility]ARAY [facility] ) POST-CATARACT LASER SURGERY Yag Laser Capulotomy (LT) 2019 12:00:00 AM EST JAVI (Ana Florez MD [facility]) Surgical / procedural history Tonsillec lurdes 1954, Appendectomy 1959, Gall Bladder, 1971, Hysterectomy 1989 Surgical / procedural history Tonsillec lurdes 1954, Appendectomy 1960, Gall Bladder, 1971, Hysterectomy 198906/22/2020 12:00:00 AM EST JAVI (Ana Florez MD [facility]) Extraction of cataract (procedure) History of cataract extraction PCIOL OU with Femtosecond laser by Dr. Prado 201606/22/2020 12:00:00 AM EST JAVI (Ana Florez MD [facility]) Medical Eye Exam Medical Eye Exam 06/22/2020 12:00:00 AM EST JAVI (Ana Florez MD [facility]) Medical Eye Exam Medical Eye Exam 06/22/2020 12:00:00 AM EST JAVI (Ana Florez MD [facility]) Results ID Date Data Source [id number] 06/29/2021 09:10:00 AM EST [facility] Name Value Range Interpretation Code Description Data Elyse rce(s) Supporting Document(s) SARS-CoV-2 (COVID-19) RNA [Presence] in Respiratory specimen by ELLA with probe detection Not Detected [facility] This lab was ordered by [facility] and reported by [employer] ID Date Data Source C REACTIVE PROTEIN QUANTITATIV (At [facility]) 09/27/2020 12:00 :00 AM EST eCW1 ([facility]) Name Value Range Interpretation Code Description Data Elyse rce(s) Supporting Document(s) 0.30 0.00-0.30 C REACTIVE PROTEIN QUANTI TATIV eCW1 ([facility]) ID Date Data Source LIPASE 09/27/2020 12:00:00 AM EST eCW1 ([facility]) Name Value Range Interpretation Code Description Data Elyse rce(s) Supporting Document(s) 102 73-393 LIPASE eCW1 ([facility]) ID Date Data Source Comprehensive Metabolic Profile (CMP) 09/27/2020 12:00:00 AM EST eCW1 ([facility]) Name Value Range Interpretation Code Description Data Elyse rce(s) Supporting Document(s) 144 70-100 GLUCOSE, FASTING eCW1 ([facility]) > 60.0 >39 GLOMERULAR FILTRATION RATE eCW 1 ([facility]) 18 7-18 BLOOD UREA NITROGEN eCW1 ([facility]) 0.81 0.55-1.30 CREATININE FOR GFR eCW1 ([facility]) 142 136-145 SODIUM LEVEL eCW1 ([facility]) 30 21-32 CARBON DIOXIDE LEVEL eCW1 ([facility]) 109 98-107 CHLORIDE LEVEL eCW1 ([facility]) 4.2 3.5-5.1 POTASSIUM SERUM eCW1 ([facility]) 71 45-117 ALKALINE PHOSPHATASE eCW1 ([facility]) 9.6 8.8-10.2 CALCIUM LEVEL eCW1 ([facility]) 40 12-78 ALT/SGPT eCW1 ([facility]) 14 7-37 AST/SGOT eCW1 ([facility]) 0.3 0.2-1.0 BILIRUBIN,TOTAL eCW1 ([facility]) 6.9 6.4-8.2 TOTAL PROTEIN eCW1 ([facility]) 4.2 3.2-5.2 ALBUMIN eCW1 ([facility]) 1.6 1.2-2.2 ALBUMIN/GLOBULIN RATIO eCW1 ([facility]) ID Date Data Source CBC with Differential 09/27/2020 12:00:00 AM EST eCW1 ([facility]) Name Value Range Interpretation Code Description Data Elyse rce(s) Supporting Document(s) 14.0 12.0-15.5 HEMOGLOBIN eCW1 ([facility]) 4.70 4.00-5.40 RED BLOOD COUNT eCW1 ([facility]) 6.4 4.0-10.0 WHITE BLOOD COUNT eCW1 ([facility]) 29.8 27.0-33.0 MEAN CORPUSCULAR HEMOGLOB IN eCW1 ([facility]) 93.2 80.0-96.0 MEAN CORPUSCULAR VOLUME e CW1 ([facility]) 32.0 32.0-36.5 MEAN CORPUSCULAR HGB CONC eCW1 ([facility]) 43.8 36.0-47.0 HEMATOCRIT eCW1 ([facility]) 277 150-450 PLATELET COUNT, AUTOMATED eCW1 ([facility]) 12.7 11.5-14.5 RED CELL DISTRIBUTION WID TH eCW1 ([facility]) 61.1 36.0-66.0 NEUTROPHILS % eCW1 ([facility]) 1.4 0.0-3.0 EOS % eCW1 ([facility]) 7.9 2.0-8.0 MONO % eCW1 ([facility]) 1.1 0.0-1.0 BASO % eCW1 ([facility]) 28.3 24.0-44.0 LYMPH % eCW1 ([facility]) 0.5 0.0-0.8 MONO # eCW1 ([facility]) 0.1 0.0-0.5 EOS # eCW1 ([facility]) 1.8 1.5-5.0 LYMPH # eCW1 ([facility]) 3.9 1.5-8.5 NEUTROPHILS # eCW1 ([facility]) 0.1 0.0-0.2 BASO # eCW1 ([facility]) ID Date Data Source CA 125 09/27/2020 12:00:00 AM EST eCW1 ([facility]) Name Value Range Interpretation Code Description Data Elyse rce(s) Supporting Document(s) 5.4 <30.2 CA 125 eCW1 ([facility]) Procedure Social History Code Duration Value Status Description Data Source(s ) Smoking 06/06/2021 12:00:00 AM EDT Patient has never smoked co mpleted Patient has never smoked MEDENT ([facility], ) Smoking 04/18/2021 12:00:00 AM EDT Never Smoker completed Never S moker eCW1 ([facility]) Smoking 12/07/2020 12:00:00 AM EDT Never Smoker completed Never S moker eCW1 ([facility]) Smoking 12/07/2020 12:00:00 AM EDT Never Smoker completed Never S moker eCW1 ([facility]) Smoking 09/27/2020 12:00:00 AM EST Never Smoker completed Never S moker eCW1 ([facility]) Smoking 09/27/2020 12:00:00 AM EST Never Smoker completed Never S moker eCW1 ([facility]) Smoking 09/06/2020 12:00:00 AM EST Never Smoker completed Never S moker eCW1 ([facility]) Smoking 09/06/2020 12:00:00 AM EST Never Smoker completed Never S moker eCW1 ([facility]) Smoking 09/06/2020 12:00:00 AM EST Never Smoker completed Never S moker eCW1 ([facility]) Smoking 09/06/2020 12:00:00 AM EST Never Smoker completed Never S moker eCW1 ([facility]) Smoking 08/16/2020 12:00:00 AM EST Never Smoker completed Never S moker eCW1 ([facility]) Smoking 07/10/2020 03:48:18 PM EST Never smoked tobacco (findi ng) completed Never smoked tobacco (finding) JAVI (Ana Florez MD [facility]) Smoking 06/22/2020 09:37:54 AM EST Never smoked tobacco (findi ng) completed Never smoked tobacco (finding) JAVI (Ana Florez MD [facility]) Vital Signs ID Date Data Source UNK Name Value Range Interpretation Code Description Data Source(s) Body mass index (BMI) [Ratio] 25.7 kg/m2 25.7 k g/m2 MEDENT ([facility]) [place] body weight 130 [lb_av] 130 [lb_av] MEDEN T ([facility]) Body weight 72.349 kg 72.349 [facility] Body surface area Derived from formula 1.82 m2 1.82 m2 [facility] ([facility]) Systolic blood pressure 132 mm[Hg] 132 mm[Hg] M EDENT ([facility]) Diastolic blood pressure 80 mm[Hg] 80 mm[Hg] MEDENT ([facility]) Heart rate 83 /min 83 /min [facility] ([facility]) Oxygen saturation in Arterial blood by Pulse oximetry 99 % 99 % [facility] ([facility]) Respiratory rate 18 /min 18 /min MEDENT ( [facility]) Body height 66 [in_i] 66 [in_i] MEDENT ([facility]) 5'6" Body weight 159.50 [lb_av] 159.50 [lb_av] MEDEN T ([facility]) Body weight 160.0 [lb_av] 160.0 [lb_av] eCW1 ([facility]) Body weight 72.58 kg 72.58 kg eCW1 ([facility]) Body height 66.5 [in_i] 66.5 [in_i] eCW1 ([facility]) Body mass index (BMI) [Ratio] 25.44 kg/m2 25.44 kg/m2 eCW1 ([facility]) Heart rate 109 /min 109 /min eCW1 ([facility]) Respiratory rate 18 /min 18 /min eCW1 ([facility]) Body temperature 97 [degF] 97 [degF] eCW1 ([facility]) Systolic blood pressure 140 mm[Hg] 140 mm[Hg] e CW1 ([facility]) Diastolic blood pressure 82 mm[Hg] 82 mm[Hg] eCW1 ([facility]) Body weight 73.483 kg 73.483 kg [facility] ([facility]) Body surface area Derived from formula 1.83 m2 1.83 m2 [facility] ([facility]) Systolic blood pressure 150 mm[Hg] 150 mm[Hg] M EDENT ([facility]) Diastolic blood pressure 83 mm[Hg] 83 mm[Hg] [facility] ([facility]) Body height 66 [in_i] 66 [in_i] [facility] ([facility]) 5'6" Body weight 162.00 [lb_av] 162.00 [lb_av] MEDEN T ([facility]) Body mass index (BMI) [Ratio] 26.1 kg/m2 26.1 k g/m2 [facility] ([facility]) [place] body weight 130 [lb_av] 130 [lb_av] MEDEN T ([facility]) Respiratory rate 20 /min 20 /min eCW1 ([facility]) Systolic blood pressure 142 mm[Hg] 142 mm[Hg] e CW1 ([facility]) Diastolic blood pressure 82 mm[Hg] 82 mm[Hg] eCW1 ([facility]) Body weight 157.6 [lb_av] 157.6 [lb_av] eCW1 ([facility]) Body height 66.5 [in_i] 66.5 [in_i] W1 ([facility]) Body mass index (BMI) [Ratio] 25.05 kg/m2 25.05 kg/m2 W1 ([facility]) Heart rate 123 /min 123 /min eCW1 ([facility]) Body temperature 98.2 [degF] 98.2 [degF] eCW1 ( [facility]) Body weight 157.8 [lb_av] 157.8 [lb_av] eCW1 ([facility]) Body height 66.5 [in_i] 66.5 [in_i] eCW1 ([facility]) Body mass index (BMI) [Ratio] 25.09 kg/m2 25.09 kg/m2 eCW1 ([facility]) Heart rate 109 /min 109 /min eCW1 ([facility]) Respiratory rate 18 /min 18 /min eCW1 ([facility]) Body temperature 99.1 [degF] 99.1 [degF] eCW1 ( [facility]) Systolic blood pressure 138 mm[Hg] 138 mm[Hg] e CW1 ([facility]) Diastolic blood pressure 78 mm[Hg] 78 mm[Hg] eCW1 ([facility]) Body weight 155 [lb_av] 155 [lb_av] eCW1 ([facility]) Body height 66.5 [in_i] 66.5 [in_i] eCW1 ([facility]) Body mass index (BMI) [Ratio] 24.64 kg/m2 24.64 kg/m2 eCW1 ([facility]) Heart rate 110 /min 110 /min eCW1 ([facility]) Respiratory rate 18 /min 18 /min eCW1 ([facility]) Body temperature 98.1 [degF] 98.1 [degF] eCW1 ( [facility]) Systolic blood pressure 150 mm[Hg] 150 mm[Hg] e CW1 ([facility]) Diastolic blood pressure 90 mm[Hg] 90 mm[Hg] eCW1 ([facility]) Body weight 159.6 [lb_av] 159.6 [lb_av] eCW1 ([facility]) Body height 66.5 [in_i] 66.5 [in_i] eCW1 ([facility]) Body mass index (BMI) [Ratio] 25.37 kg/m2 25.37 kg/m2 eCW1 ([facility]) Heart rate 97 /min 97 /min eCW1 ([facility]) Respiratory rate 18 /min 18 /min eCW1 ([facility]) Body temperature 97.6 [degF] 97.6 [degF] eCW1 ( [facility]) Systolic blood pressure 144 mm[Hg] 144 mm[Hg] e CW1 ([facility]) Diastolic blood pressure 82 mm[Hg] 82 mm[Hg] eCW1 ([facility]) Oxygen saturation in Arterial blood by Pulse oximetry 98 % 98 % [facility] Room Air Body height 66 [in_i] 66 [in_i] [facility] ([facility], ) 5'6" Body weight 161.00 [lb_av] 161.00 [lb_av] MEDEN T ([facility]) Body mass index (BMI) [Ratio] 26.0 kg/m2 26.0 k g/m2 [facility] ([facility]) [place] body weight 130 [lb_av] 130 [lb_av] MEDEN T ([facility]) Body weight 73.030 kg 73.030 kg [facility] ([facility]) Body height 66 [in_i] 66 [in_i] [facility] 5'6" Body weight 161.00 [lb_av] 161.00 [lb_av] MEDEN T ([facility]) Body mass index (BMI) [Ratio] 26.0 kg/m2 26.0 k g/m2 [facility] ([facility]) [place] body weight 130 [lb_av] 130 [lb_av] MEDEN T ([facility] ) Systolic blood pressure 140 mm[Hg] 140 mm[Hg] M EDENT ([facility]) Diastolic blood pressure 90 mm[Hg] 90 mm[Hg] MEDENT ([facility] ) Heart rate 70 /min 70 /min [facility] ([facility], ) Oxygen saturation in Arterial blood by Pulse oximetry 98 % 98 % [facility] ([facility] ) Room Air Body weight 73.030 kg 73.030 kg [facility] ([facility]) Body surface area Derived from formula 1.82 m2 1.82 m2 [facility] ([facility]) Patient Treatment Plan of Care Planned Activity Planned Date Details Description Data Source (s) Simethicone 125 MG 04/18/2021 12:00:00 AM EDT eCW1 ([facility]) Polyethylene Glycol - 04/18/2021 12:00:00 AM EDT eCW1 ([facility]) Nortriptyline 10 MG Oral Capsule 12/07/2020 12:00:00 AM EDT eCW1 ([facility]) Nortriptyline 10 MG Oral Capsule 12/07/2020 12:00:00 AM EDT eCW1 ([facility]) Trulance 3 MG 09/07/2020 12:00:00 AM EST eCW1 ([facility]) Trulance 3 MG 09/07/2020 12:00:00 AM EST eCW1 ([facility]) Trulance 3 MG 09/07/2020 12:00:00 AM EST eCW1 ([facility]) Trulance 3 MG 09/07/2020 12:00:00 AM EST eCW1 ([facility]) Trulance 3 MG 09/07/2020 12:00:00 AM EST eCW1 ([facility]) Trulance 3 MG 09/07/2020 12:00:00 AM EST eCW1 ([facility]) loteprednol etabonate 2 MG/ML Ophthalmic Suspension [A lrex] 07/10/2020 12:00:00 AM EST JAVI (Ana Florez MD [facility])
--- OUTSIDE RECORDS SUMMARY | 2021-07-04 06:55 | CCD | Continuity of Care Document ---
Author Author Ziyad PINTO MD Organization Unknown Address [address] [place] [address] Phone [phone] Care Team Providers Care Insurance Premium Auditor Name Role Phone Farhan Akhtar M.D. AUTM [phone] Problems Active Problems Provider Date Apnea Nasir Larsen MD Onset: 05/25/2015 Deviated nasal septum Nasir Larsen MD Onset: 05/25/2015 Sialoadenitis Benitez Martínez MD Onset: 06/01/2015 Periodic limb movement disorder Guillaume Pinto MD Onset: 0 09/14/2014 Acute maxillary sinusitis Marsha Prince, A.N.PNadiya Onset: 012 Allergic rhinitis Guillaume Pinto MD Onset: 05/08/2011 Obstructive sleep apnea syndrome Guillaume Pinto MD Onset: 10/24/2010 Social History Type Date Description Comments Sex Unknown ETOH Use Never used alcohol Tobacco Use Start: Unknown Patient has never smoked Recreational Drug Use Denies Drug Use Smoking Status Reviewed: 06/06/21 Patient has never smoked Allergies and adverse reactions Active Allergies Criticality Reaction | Severity Comments Date Seasonal Unable to assess criticality 04/06/2012 Canagliflozin Unable to assess criticality 05/27/2016 Pilocarpine Unable to assess criticality 10/15/2015 Inactive Allergies NKDA Unable to assess criticality 04/06/2012 Medications Active Medications SIG Qnty Indications Ordering Provide r Date Magnesium Citrate 1.745GM/30ML Vania ution one 10 oz bottle green or clear only, use for additional prep at 2-3 days before procedure 296ml R19.4 Chan Curran MD 03/18/2021 Miralax 17GM/Scoop Powder use as directed see dr curran colon preparation instructions 510gm R19.4 Adalid Curran MD 03/18/2021 Vitamin D (Ergocalciferol) 10257Eseu Capsules 1 po every week Unknown Vitamin C 500mg Tablets 1 po every day Unknown Metformin HCL ER (Mod) 500mg Tablets ER 24HR 1 by mouth every day Unknown 000 BIPAP 14/10 [facility] Unknown Glimepiride 1mg Tablets 1 by mouth twice a day Unknown Ramipril 2.5mg Capsules 1 by mouth every day Unknown Rosuvastatin Calcium 10mg Tablets 1 by mouth every day Unknown Restasis 0.05% Emulsion twice daily Unknown Glucosamine Chondroitin 1500 Complex 1500Com Capsules Unknown Several Supplements Unknown History Medications Miralax 17GM/Scoop Powder 17 gm once a day 1020gm R19.4 Chan Curran MD 03/18/2021 - Immunizations CPT Code Status Date Vaccine Lot # [id number] Given 06/14/2014 Influenza Virus Split 3 Yrs And Above For Intramuscular Use Q2036 Given 05/22/2011 Influenza Vaccine 3 Years Of Age Or Older (Flulaval) 75908 Given 05/22/2010 Influenza Virus Split 3 Yrs And Above For Intramuscular Use 39465 Given Unknown Pneumococcal PPSV23 Vital Signs Date Vital Result Comment 06/06/2021 12:50pm BP Systolic 132 mmHg BP Diastolic 80 mmHg Heart Rate 83 /min O2 % BldC Oximetry 99 % Respiratory Rate 18 /min Height 66 inches 5'6" Weight 159.50 lb BMI (Body Mass Index) 25.7 kg/m2 [place] Body Weight 130 lb Weight 72.349 kg BSA (Body Surface Area) 1.82 m2 03/18/2021 8:35am BP Systolic 150 mmHg BP Diastolic 83 mmHg Height 66 inches 5'6" Weight 162.00 lb BMI (Body Mass Index) 26.1 kg/m2 [place] Body Weight 130 lb Weight 73.483 kg BSA (Body Surface Area) 1.83 m2 Results Description No Information Available Procedures Date Code Description Status 03/18/2021 58128 Office/Outpatient New Moderate M DM 45-59 Minutes Completed Medical Devices Description No Information Available Encounters Type Date Location Provider Dx Diagnosis Office Visit 03/18/2021 8:45a [facility] Chan Curran MD R14.0 Abdominal distension (gaseou s) R14.2 Eructation K59.00 Constipation, unspecified Assessments Date Code Description Provider 06/06/2021 G47.33 Obstructive sleep apnea (adult) (pediatric) Guillaume Pinto MD 03/18/2021 R14.0 Abdominal distension (gaseous) Arianna Curran MD 03/18/2021 R14.2 Eructation Chan Curran MD 03/18/2021 K59.00 Constipation, unspecified Chan Curran MD Plan of Treatment Future Appointment(s):* 06/10/2022 1:00 pm - Guillaume Pinto MD at [facility] Pulmonary/Thoracic * 07/04/2021 9:20 am - Chan Curran MD at [facility] 06/06/2021 - Guillaume Pinto MD* G47.33 Obstructive sleep apnea (adult) (pediatric) * * New Orders:* CPAP/BIPAP Supply, Ordered: 06/06/21 * Follow up:* 12 months...no testing Functional Status Description No Information Available Mental Status Description No Information Available Referrals Refer to Reason for Referral Status Appt Date Chan Curran M.D. ABD BLOATING COLO SCREENING Scheduled 02/26/2021 [facility], Gastroenterology [address], [address] [place] [address] [phone]
[2021-07-04] MEDS ORDERED: LIDOCAINE 2% 100MG/5ML SDV (FOR ANES.) As Ordered ONE (07:17)
[2021-07-04] MEDS ORDERED: propofoL 200 MG/20 ML VIAL As Ordered ONE (07:17)
[2021-07-04] MEDS ORDERED: fentaNYL 100 MCG/2 ML INJECTION (J3010) As Ordered ONE (07:48)
--- NOTE | 2021-07-04 08:04 | ROOR ---
Patient Name: Ziyad Robert Procedure Date: 07/04/2021 7:38 AM Date of : 1950 Age: 71 Room: [facility] Gender: Female Note Status: Finalized Procedure: Upper GI endoscopy Indications: Dyspepsia Providers: Chan Archibald MD Referring MD: Farhan Akhtar MD Requesting Provider: Medicines: Monitored Anesthesia Care Complications: No immediate complications. Procedure: Pre-Anesthesia Assessment: - The heart rate, respiratory rate, oxygen saturations, blood pressure, adequacy of pulmonary ventilation, and response to care were monitored throughout the procedure. The Endoscope was introduced through the mouth, and advanced to the second part of duodenum. The upper GI endoscopy was accomplished without difficulty. The patient tolerated the procedure well. Findings: The Z-line was variable and was found 39 cm from the incisors. Biopsies were taken with a cold forceps for histology. Localized minimal inflammation characterized by erythema was found in the gastric antrum. Biopsies were taken with a cold forceps for Helicobacter pylori testing. A few erosions without bleeding were found in the first portion of the duodenum. Biopsies were taken with a cold forceps for histology. Biopsies for histology were taken with a cold forceps in the second portion of the duodenum for evaluation of celiac disease. Impression: - Z-line variable, 39 cm from the incisors. Biopsied. - Minimal gastritis. Biopsied. - Mild duodenitis with a few duodenal erosions without bleeding. Biopsied. - Biopsies were taken with a cold forceps for evaluation of celiac disease. Recommendation: - Use Prilosec (omeprazole) 20 mg PO daily. - No ibuprofen, naproxen, or other non-steroidal anti-inflammatory drugs. - (the script was sent to your pharmacy on file) Procedure Code(s): --- Professional --- 66843, Esophagogastroduodenoscopy, flexible, transoral; with biopsy, single or multiple Diagnosis Code(s): --- Professional --- R10.13, Epigastric pain K26.9, Duodenal ulcer, unspecified as acute or chronic, without hemorrhage or perforation K29.70, Gastritis, unspecified, without bleeding K22.8, Other specified diseases of esophagus CPT copyright 2019 [employer]. All rights reserved. The codes documented in this report are preliminary and upon neck fitter review may be revised to meet current compliance requirements. Chan Archibald MD Chan Archibald MD 07/04/2021 8:03:05 AM Electronically signed by Chan Archibald MD Number of Addenda: 0 Note Initiated On: 07/04/2021 7:38 AM Estimated Blood Loss: Estimated blood loss: none.
--- NOTE | 2021-07-04 08:27 | ROOR ---
Patient Name: Ziyad Robert Procedure Date: 07/04/2021 7:39 AM Date of : 1950 Age: 71 Room: [facility] Gender: Female Note Status: Finalized Procedure: Colonoscopy Indications: Suspected irritable bowel syndrome, Change in bowel habits Providers: Chan Archibald MD Referring MD: Farhan Akhtar MD Requesting Provider: Medicines: Monitored Anesthesia Care Complications: No immediate complications. Procedure: Pre-Anesthesia Assessment: - The heart rate, respiratory rate, oxygen saturations, blood pressure, adequacy of pulmonary ventilation, and response to care were monitored throughout the procedure. The Colonoscope was introduced through the anus and advanced to 5 cm into the ileum. The colonoscopy was performed without difficulty. The patient tolerated the procedure well. The quality of the bowel preparation was good. Findings: The perianal and digital rectal examinations were normal. A 5 mm polyp was found in the splenic flexure. The polyp was sessile. The polyp was removed with a cold snare. Resection and retrieval were complete. Small internal hemorrhoids. The exam was otherwise without abnormality on direct and retroflexion views. Biopsies for histology were taken with a cold forceps from the entire colon for evaluation of microscopic colitis. Impression: - One 5 mm polyp at the splenic flexure, removed with a cold snare. Resected and retrieved. - Small internal hemorrhoids. - The colon and terminal ileum are otherwise normal on direct and retroflexion views. - Biopsies were taken with a cold forceps from the entire colon for evaluation of microscopic colitis. Recommendation: - Telephone endoscopist for pathology results in 2 weeks. - Use fiber, for example Citrucel, Fibercon, Konsyl or Metamucil. - Lactose free diet. Procedure Code(s): --- Professional --- 76221, Colonoscopy, flexible; with removal of tumor(s), polyp(s), or other lesion(s) by snare technique 22072, 59, Colonoscopy, flexible; with biopsy, single or multiple Diagnosis Code(s): --- Professional --- R19.4, Change in bowel habit K63.5, Polyp of colon CPT copyright 2019 [employer]. All rights reserved. The codes documented in this report are preliminary and upon dairy technologist review may be revised to meet current compliance requirements. Chan Archibald MD Chan Archibald MD 07/04/2021 8:26:50 AM Electronically signed by Chan Archibald MD Number of Addenda: 0 Note Initiated On: 07/04/2021 7:39 AM Estimated Blood Loss: Estimated blood loss: none.
[2021-07-04 08:50] VITALS: BP 128/68
== END 2021-07-04 09:01 | disposition home or self-care (01) ==
LOC: M OPP 06:50
PROVIDERS: ATTEND Internal Medicine Gastroenterology
DX: K63.5 Polyp of colon (principal); R19.4 Change in bowel habit; Z80.0 Family history of malignant neoplasm of digestive organs; K26.9 Duodenal ulcer, unspecified as acute or chronic, without hemorrhage or perforation; K29.70 Gastritis, unspecified, without bleeding; K22.89 Other specified disease of esophagus; R10.13 Epigastric pain; E11.9 Type 2 diabetes mellitus without complications; G47.30 Sleep apnea, unspecified; Z79.84 Long term (current) use of oral hypoglycemic drugs; Z79.899 Other long term (current) drug therapy; Z88.8 Allergy status to other drugs, medicaments and biological substances
CPT/HCPCS: 43239; 45380; 45385; 88305; J3010

== ENCOUNTER → 2021-08-14 | Outpatient (CLI) | payer MEDICARE ==
[~2021-08-14] MED LIST changes: -NS 1,000 ML IV ONE
[2021-08-14 11:00] LABS: BASO # 0.1 10^3/uL (0.0-0.2); BASO % 1.6 % (0.0-1.0); EOS # 0.2 10^3/uL (0.0-0.5); EOS % 3.1 % (0.0-3.0); HEMATOCRIT 44.5 % (36.0-47.0); HEMOGLOBIN 14.7 g/dl (12.0-15.5); LYMPH # 1.6 10^3/uL (1.5-5.0); LYMPH % 33.1 % (24.0-44.0); MEAN CORPUSCULAR HEMOGLOBIN 30.2 pg (27.0-33.0); MEAN CORPUSCULAR VOLUME 91.4 fl (80.0-96.0); MONO # 0.4 10^3/uL (0.0-0.8); MONO % 8.4 % (2.0-8.0); NEUTROPHILS # 2.6 10^3/uL (1.5-8.5); NEUTROPHILS % 53.6 % (36.0-66.0); PLATELET COUNT, AUTOMATED 276 10^3/uL (150-450); RED BLOOD COUNT 4.87 10^6/uL (4.00-5.40); WHITE BLOOD COUNT 4.9 10^3/uL (4.0-10.0)
[2021-08-14 12:57] LABS: ALT/SGPT 33 U/L (12-78); BILIRUBIN,TOTAL 0.3 MG/DL (0.2-1.0); BLOOD UREA NITROGEN 17 MG/DL (7-18); CALCIUM LEVEL 9.6 MG/DL (8.8-10.2); CARBON DIOXIDE LEVEL 29 MEQ/L (21-32); CHLORIDE LEVEL 106 MEQ/L (98-107); CHOLESTEROL LEVEL 359 MG/DL (<200); CREATININE FOR GFR 0.69 MG/DL (0.55-1.30); FERRITIN 152 NG/ML (8-252); FREE T4 0.82 NG/DL (0.76-1.46); GLOMERULAR FILTRATION RATE > 60.0 (>39); GLUCOSE, FASTING 131 MG/DL (70-100); HDL CHOLESTEROL 50 MG/DL (>40); LDL CHOLESTEROL 271 MG/DL (<100); NON-HDL-C 309 MG/DL; NT-PRO BNP 56 PG/ML (<125); POTASSIUM SERUM 4.3 MEQ/L (3.5-5.1); SODIUM LEVEL 141 MEQ/L (136-145); TOTAL PROTEIN 7.1 GM/DL (6.4-8.2); TRIGLYCERIDES LEVEL 189 MG/DL (<150); VITAMIN B12 LEVEL > 2000 PG/ML (247-911)
[2021-08-14 15:44] LABS: HEMOGLOBIN A1c 6.1 %
== END ==
LOC: M PLALAB 09:43
PROVIDERS: ATTEND Family Medicine
DX: E11.9 Type 2 diabetes mellitus without complications (principal)

== ENCOUNTER → 2021-08-22 | Outpatient (CLI) | payer MEDICARE ==
[~2021-08-22] MED LIST changes: +ACET-683 PO; +ATOR1TAB19 PO; +CHRO200C2 PO; +CIDA500T2 PO; +CINN500C15 PO; +CVS1500T PO; +D 50CAP2 PO; +DIPH25CA32 PO; +EQL50TAB2 PO; +FLON1SPR NARES; +MELA5CAP2 PO; +OMEG10002 PO; +OMEP-173 PO; +PROB250C PO; +VITA500C3 PO; +ZINC100T3 PO; +[UNRECOGNIZED DRUG - OTHER] PO; +[UNRECOGNIZED DRUG - OTHER] PO; +[UNRECOGNIZED DRUG - OTHER] PO; +[UNRECOGNIZED DRUG - OTHER] PO; +[UNRECOGNIZED DRUG - OTHER] PO; +[UNRECOGNIZED DRUG - OTHER] PO; +[UNRECOGNIZED DRUG - OTHER] PO; +[UNRECOGNIZED DRUG - OTHER] PO; +[UNRECOGNIZED DRUG - OTHER] PO; +[UNRECOGNIZED DRUG - OTHER] XX
== END ==
LOC: M WHC 07:53
PROVIDERS: ATTEND Family Medicine
DX: Z12.31 Encounter for screening mammogram for malignant neoplasm of breast (principal); N63.10 Unspecified lump in the right breast, unspecified quadrant; R92.8 Other abnormal and inconclusive findings on diagnostic imaging of breast

== ENCOUNTER → 2021-08-23 | Outpatient (CLI) | payer MEDICARE | LOC: M WHC 13:15 | PROVIDERS: ATTEND Family Medicine | DX: R92.8 Other abnormal and inconclusive findings on diagnostic imaging of breast (principal) | CPT/HCPCS: 76642; 77065; G0279 ==

== ENCOUNTER → 2021-08-23 | Outpatient (CLI) | payer MEDICARE ==
[~2021-08-23] MED LIST changes: -ACET-683 PO; -ATOR1TAB19 PO; -CHRO200C2 PO; -CIDA500T2 PO; -CINN500C15 PO; -CVS1500T PO; -D 50CAP2 PO; -DIPH25CA32 PO; -EQL50TAB2 PO; -FLON1SPR NARES; -MELA5CAP2 PO; -OMEG10002 PO; -OMEP-173 PO; -PROB250C PO; -VITA500C3 PO; -ZINC100T3 PO; -[UNRECOGNIZED DRUG - OTHER] PO; -[UNRECOGNIZED DRUG - OTHER] PO; -[UNRECOGNIZED DRUG - OTHER] PO; -[UNRECOGNIZED DRUG - OTHER] PO; -[UNRECOGNIZED DRUG - OTHER] PO; -[UNRECOGNIZED DRUG - OTHER] PO; -[UNRECOGNIZED DRUG - OTHER] PO; -[UNRECOGNIZED DRUG - OTHER] PO; -[UNRECOGNIZED DRUG - OTHER] PO; -[UNRECOGNIZED DRUG - OTHER] XX
== END | disposition home or self-care (01) ==
LOC: MERGE 12:49 → M WHC 12:49 → EDSEX 12:49
PROVIDERS: ATTEND Family Medicine
DX: Z12.31 Encounter for screening mammogram for malignant neoplasm of breast (principal)

== ENCOUNTER → 2021-09-17 | Outpatient (CLI) | payer MEDICARE ==
[~2021-09-17] MED LIST changes: +**SFHN** LIDOCAINE 1% MDV 20ML VIAL ONE; +**SFHN** SODIUM BICARBONATE 8.4% 10MEQ 10ML VIAL ONE; +OMEP-173 PO
[2021-09-17 09:38] VITALS: BP 152/82
== END ==
LOC: M WHCPRO 07:32
PROVIDERS: ATTEND Family Medicine
DX: C50.211 Malignant neoplasm of upper-inner quadrant of right female breast (principal)

== ENCOUNTER → 2021-10-09 | Outpatient (CLI) | payer MEDICARE ==
[~2021-10-09] MED LIST changes: -**SFHN** LIDOCAINE 1% MDV 20ML VIAL ONE; -**SFHN** SODIUM BICARBONATE 8.4% 10MEQ 10ML VIAL ONE; +ATOR1TAB19 PO; +CHRO200C2 PO; +CIDA500T2 PO; +CINN500C15 PO; +D 50CAP2 PO; +DIPH25CA32 PO; +EQL50TAB2 PO; +FLON1SPR NARES; +MELA5CAP2 PO; +OMEG10002 PO; +PROB250C PO; +VITA500C3 PO; +ZINC100T3 PO; +[UNRECOGNIZED DRUG - OTHER]; +[UNRECOGNIZED DRUG - OTHER]; +[UNRECOGNIZED DRUG - OTHER]; +[UNRECOGNIZED DRUG - OTHER]; +[UNRECOGNIZED DRUG - OTHER]; +[UNRECOGNIZED DRUG - OTHER]; +[UNRECOGNIZED DRUG - OTHER] XX
[2021-10-09 16:03] VITALS: BP 162/92
== END ==
LOC: M WHCPRO 13:15
PROVIDERS: ATTEND Surgery
DX: R59.9 Enlarged lymph nodes, unspecified (principal)

== ENCOUNTER → 2021-10-09 | Outpatient (CLI) | payer MEDICARE ==
[2021-10-09 15:41] LABS: BLOOD UREA NITROGEN 21 MG/DL (7-18); CALCIUM LEVEL 9.4 MG/DL (8.8-10.2); CARBON DIOXIDE LEVEL 31 MEQ/L (21-32); CHLORIDE LEVEL 107 MEQ/L (98-107); CREATININE FOR GFR 0.67 MG/DL (0.55-1.30); GLOMERULAR FILTRATION RATE > 60.0 (>39); GLUCOSE, FASTING 109 MG/DL (70-100); POTASSIUM SERUM 4.1 MEQ/L (3.5-5.1); SODIUM LEVEL 142 MEQ/L (136-145)
== END ==
LOC: M PLALAB 12:55
PROVIDERS: ATTEND Surgery
DX: C50.811 Malignant neoplasm of overlapping sites of right female breast (principal)

== ENCOUNTER → 2021-10-11 | Outpatient (CLI) | payer MEDICARE ==
[~2021-10-11] MED LIST changes: +PROHANCE 279.3MG/ML 15ML VIAL As Ordered ONE
== END ==
LOC: M RAD 14:27
PROVIDERS: ATTEND Family Medicine
DX: C50.911 Malignant neoplasm of unspecified site of right female breast (principal)
CPT/HCPCS: A9576; C8908

== ENCOUNTER → 2021-10-22 | Outpatient (CLI) | payer MEDICARE ==
[~2021-10-22] MED LIST changes: +ACET-683 PO; +CVS1500T PO; -PROHANCE 279.3MG/ML 15ML VIAL As Ordered ONE; -[UNRECOGNIZED DRUG - OTHER]; -[UNRECOGNIZED DRUG - OTHER]; -[UNRECOGNIZED DRUG - OTHER]; -[UNRECOGNIZED DRUG - OTHER]; -[UNRECOGNIZED DRUG - OTHER]; -[UNRECOGNIZED DRUG - OTHER]; +[UNRECOGNIZED DRUG - OTHER] PO; +[UNRECOGNIZED DRUG - OTHER] PO; +[UNRECOGNIZED DRUG - OTHER] PO; +[UNRECOGNIZED DRUG - OTHER] PO; +[UNRECOGNIZED DRUG - OTHER] PO; +[UNRECOGNIZED DRUG - OTHER] PO; +[UNRECOGNIZED DRUG - OTHER] PO; +[UNRECOGNIZED DRUG - OTHER] PO; +[UNRECOGNIZED DRUG - OTHER] PO
[2021-10-22 10:34] LABS: BASO # 0.1 10^3/uL (0.0-0.2); BASO % 1.1 % (0.0-1.0); EOS # 0.1 10^3/uL (0.0-0.5); EOS % 2.2 % (0.0-3.0); HEMATOCRIT 43.2 % (36.0-47.0); HEMOGLOBIN 14.2 g/dl (12.0-15.5); LYMPH # 1.4 10^3/uL (1.5-5.0); LYMPH % 25.9 % (24.0-44.0); MEAN CORPUSCULAR HEMOGLOBIN 30.4 pg (27.0-33.0); MEAN CORPUSCULAR HGB CONC 32.9 g/dl (32.0-36.5); MEAN CORPUSCULAR VOLUME 92.5 fl (80.0-96.0); MONO # 0.4 10^3/uL (0.0-0.8); MONO % 7.4 % (2.0-8.0); NEUTROPHILS # 3.5 10^3/uL (1.5-8.5); PLATELET COUNT, AUTOMATED 255 10^3/uL (150-450); RED BLOOD COUNT 4.67 10^6/uL (4.00-5.40); WHITE BLOOD COUNT 5.6 10^3/uL (4.0-10.0)
[2021-10-22 11:08] LABS: ALBUMIN 4.1 GM/DL (3.2-5.2); ALT/SGPT 38 U/L (12-78); BILIRUBIN,TOTAL 0.4 MG/DL (0.2-1.0); BLOOD UREA NITROGEN 16 MG/DL (7-18); CALCIUM LEVEL 9.5 MG/DL (8.8-10.2); CARBON DIOXIDE LEVEL 31 MEQ/L (21-32); CHLORIDE LEVEL 108 MEQ/L (98-107); CHOLESTEROL LEVEL 216 MG/DL (<200); CHOLESTEROL RISK RATIO 3.724 (<5); GLOMERULAR FILTRATION RATE > 60.0 (>39); GLUCOSE, FASTING 130 MG/DL (70-100); HDL CHOLESTEROL 58 MG/DL (>40); LDL CHOLESTEROL 137 MG/DL (<100); NON-HDL-C 158 MG/DL; POTASSIUM SERUM 4.1 MEQ/L (3.5-5.1); SODIUM LEVEL 144 MEQ/L (136-145); TOTAL PROTEIN 6.9 GM/DL (6.4-8.2); TRIGLYCERIDES LEVEL 105 MG/DL (<150)
[2021-10-22 11:17] LABS: HEMOGLOBIN A1c 6.7 %; VITAMIN B12 LEVEL 1892 PG/ML (247-911)
[2021-10-23 08:09] LABS: APOLIPOPROTEIN B/A-1 RATIO 0.7 ratio (0.0-0.6); INSULIN LEVEL 15.6 uIU/mL (2.6-24.9)
[2021-10-23 13:08] LABS: ALBUMIN % 64.2 % (55.8-66.1)
[2021-10-23 13:09] LABS: ALBUMIN 4.43 GM/DL (3.29-5.55); ALPHA-1-GLOBULINS 0.28 GM/DL (0.17-0.41); ALPHA-2-GLOBULINS 0.74 GM/DL (0.42-0.99); ALPHA-2-GLOBULINS % 10.7 % (7.1-11.8); BETA-1-GLOBULINS 0.45 GM/DL (0.28-0.60); BETA-1-GLOBULINS % 6.5 % (4.7-7.2); BETA-2-GLOBULINS 0.35 GM/DL (0.19-0.55); BETA-2-GLOBULINS % 5.1 % (3.2-6.5); GAMMA GLOBULIN % 9.5 % (11.1-18.8); GAMMA GLOBULINS 0.66 GM/DL (0.65-1.58)
== END ==
LOC: M PLALAB 08:44
PROVIDERS: ATTEND Family Medicine
DX: E53.8 Deficiency of other specified B group vitamins (principal); E78.00 Pure hypercholesterolemia, unspecified

== ENCOUNTER → 2021-10-23 | Outpatient (CLI) | payer MEDICARE ==
[~2021-10-23] MED LIST changes: +LIDOCAINE 1% MDV 20ML VIAL As Ordered ONE; +MIDAZOLAM INJ 2MG/2ML VIAL (J2250 PER 1MG) As Ordered ONE; +NS 1,000 ML IV SCH; +ceFAZolin 2 GM/D5W 50 ML IV BAG (J0690 PER 500MG) As Ordered ONE; +ceFAZolin SOD 2 GM in IV 1 EA IV ONE; +diphenhydrAMINE 50MG/ML VIAL (J1200) As Ordered ONE; +fentaNYL 100 MCG/2 ML INJECTION As Ordered ONE
[2021-10-23 16:20] VITALS: BP 142/81
== END ==
LOC: M IRPRO 12:04
PROVIDERS: ATTEND Radiology Diagnostic Radiology
DX: C50.911 Malignant neoplasm of unspecified site of right female breast (principal); Z79.84 Long term (current) use of oral hypoglycemic drugs; Z79.899 Other long term (current) drug therapy; Z88.8 Allergy status to other drugs, medicaments and biological substances
CPT/HCPCS: 36561; 99152; 99153; C1769; C1788; C1894; J0690; J1200; J1642; J1644; J2250; J3010

== ENCOUNTER → 2021-10-24 | Outpatient (CLI) | payer MEDICARE ==
[~2021-10-24] MED LIST changes: +GASTROGRAFIN SOLUTION 30ML (Q9963) As Ordered ONE; +ISOVUE-370 76% 100ML VIAL As Ordered ONE; -LIDOCAINE 1% MDV 20ML VIAL As Ordered ONE; -MIDAZOLAM INJ 2MG/2ML VIAL (J2250 PER 1MG) As Ordered ONE; -NS 1,000 ML IV SCH; -ceFAZolin 2 GM/D5W 50 ML IV BAG (J0690 PER 500MG) As Ordered ONE; -ceFAZolin SOD 2 GM in IV 1 EA IV ONE; -diphenhydrAMINE 50MG/ML VIAL (J1200) As Ordered ONE; -fentaNYL 100 MCG/2 ML INJECTION As Ordered ONE
== END ==
LOC: M RAD 11:12
PROVIDERS: ATTEND Internal Medicine Medical Oncology
DX: M54.59 Other low back pain (principal); M54.2 Cervicalgia
CPT/HCPCS: 71260; 74177; 78306; A9503; Q9963; Q9967

== ENCOUNTER → 2021-10-25 | Outpatient (CLI) | payer MEDICARE ==
[~2021-10-25] MED LIST changes: -GASTROGRAFIN SOLUTION 30ML (Q9963) As Ordered ONE; -ISOVUE-370 76% 100ML VIAL As Ordered ONE
== END ==
LOC: M CARPUL 14:27
PROVIDERS: ATTEND Internal Medicine Medical Oncology
DX: C50.919 Malignant neoplasm of unspecified site of unspecified female breast (principal)

== ENCOUNTER 2021-11-18 08:10 | Emergency (ER) | payer MEDICARE ==
[~2021-11-18] VITALS: Ht 167.6 cm; Wt 67.6 kg
[2021-11-18] MEDS ORDERED: NS 1,000 ML IV ONE (09:00)
[2021-11-18 09:16] LABS: BASO % 0.6 % (0.0-1.0); EOS % 0.3 % (0.0-3.0); HEMATOCRIT 44.9 % (36.0-47.0); HEMOGLOBIN 15.3 g/dl (12.0-15.5); LYMPH # 0.9 10^3/uL (1.5-5.0); LYMPH % 12.4 % (24.0-44.0); MEAN CORPUSCULAR HGB CONC 34.1 g/dl (32.0-36.5); MEAN CORPUSCULAR VOLUME 90.9 fl (80.0-96.0); MONO # 0.3 10^3/uL (0.0-0.8); MONO % 4.7 % (2.0-8.0); NEUTROPHILS # 5.9 10^3/uL (1.5-8.5); NEUTROPHILS % 80.9 % (36.0-66.0); PLATELET COUNT, AUTOMATED 297 10^3/uL (150-450); RED BLOOD COUNT 4.94 10^6/uL (4.00-5.40); WHITE BLOOD COUNT 7.2 10^3/uL (4.0-10.0)
[2021-11-18 09:39] LABS: ALT/SGPT 53 U/L (12-78); BILIRUBIN,DIRECT 0.1 MG/DL (0.0-0.2); BILIRUBIN,TOTAL 0.4 MG/DL (0.2-1.0); BLOOD UREA NITROGEN 12 MG/DL (7-18); CALCIUM LEVEL 9.7 MG/DL (8.8-10.2); CARBON DIOXIDE LEVEL 27 MEQ/L (21-32); CHLORIDE LEVEL 104 MEQ/L (98-107); CREATININE FOR GFR 0.88 MG/DL (0.55-1.30); GLOMERULAR FILTRATION RATE > 60.0 (>39); GLUCOSE, FASTING 180 MG/DL (70-100); LIPASE 77 U/L (73-393); MAGNESIUM LEVEL 1.9 MG/DL (1.8-2.4); SODIUM LEVEL 138 MEQ/L (136-145); TOTAL PROTEIN 7.3 GM/DL (6.4-8.2)
[2021-11-18 11:58] VITALS: BP 122/85
[2021-11-18 12:57] LABS: RSV AMPLIFICATION NEGATIVE (NEGATIVE)
== END 2021-11-18 12:04 | disposition home or self-care (01) ==
LOC: M ED 08:10
DX: R19.7 Diarrhea, unspecified (principal); R11.2 Nausea with vomiting, unspecified; C50.911 Malignant neoplasm of unspecified site of right female breast; K58.8 Other irritable bowel syndrome; I10 Essential (primary) hypertension; E78.5 Hyperlipidemia, unspecified; F32.A Depression, unspecified; F41.9 Anxiety disorder, unspecified; Z88.8 Allergy status to other drugs, medicaments and biological substances; Z79.899 Other long term (current) drug therapy

== ENCOUNTER → 2021-11-18 | Outpatient (REF) | payer MEDICARE ==
[~2021-11-18] MED LIST changes: +LIDO1CRE42 TOP; +LOMO2.5T PO; +NERVE COMPLEX PO; +ONDA-84 PO; +POTA10TA17 PO; +PROC10TA5 PO; +[UNRECOGNIZED DRUG - OTHER] NARES; +[UNRECOGNIZED DRUG - OTHER] NARES; +[UNRECOGNIZED DRUG - OTHER] PO
== END ==
LOC: M LAB REF 13:44
PROVIDERS: ATTEND Internal Medicine
DX: R19.7 Diarrhea, unspecified (principal)

== ENCOUNTER → 2022-01-21 | Outpatient (CLI) | payer MEDICARE ==
[~2022-01-21] MED LIST changes: +DIFI200T PO; +SFHHYD1CR TOP; +VANC1CAP6 PO
== END ==
LOC: M CARPUL 10:20
PROVIDERS: ATTEND Internal Medicine Medical Oncology
DX: I42.7 Cardiomyopathy due to drug and external agent (principal)

== ENCOUNTER → 2022-01-21 | Outpatient (REF) | payer MEDICARE | LOC: M SFHCPLAZ 11:29 | PROVIDERS: ATTEND Internal Medicine Infectious Disease | DX: A04.72 Enterocolitis due to Clostridium difficile, not specified as recurrent (principal); I42.7 Cardiomyopathy due to drug and external agent ==

== ENCOUNTER → 2022-02-07 | Outpatient (CLI) | payer MEDICARE ==
[~2022-02-07] MED LIST changes: +MAGN400C PO
== END ==
LOC: M CARPUL 07:19
PROVIDERS: ATTEND Nurse Practitioner
DX: I50.9 Heart failure, unspecified (principal)

== ENCOUNTER → 2022-03-04 | Outpatient (REF) | payer MEDICARE ==
[~2022-03-04] MED LIST changes: +POTA-150 PO; -POTA10TA17 PO
== END ==
LOC: M SFHCPLAZ 10:40
PROVIDERS: ATTEND Internal Medicine Infectious Disease
DX: A04.72 Enterocolitis due to Clostridium difficile, not specified as recurrent (principal)

== ENCOUNTER → 2022-04-30 | Outpatient (CLI) | payer MEDICARE | LOC: M WHC 13:11 | PROVIDERS: ATTEND Surgery | DX: C50.811 Malignant neoplasm of overlapping sites of right female breast (principal) | CPT/HCPCS: 77065; G0279 ==

== ENCOUNTER → 2022-05-01 | Outpatient (CLI) | payer MEDICARE ==
[~2022-05-01] MED LIST changes: +PROHANCE 279.3MG/ML 15ML VIAL As Ordered ONE
== END ==
LOC: M RAD 14:38
PROVIDERS: ATTEND Surgery
DX: C50.811 Malignant neoplasm of overlapping sites of right female breast (principal)
CPT/HCPCS: A9576; C8908

== ENCOUNTER → 2022-05-06 | Outpatient (CLI) | payer MEDICARE ==
[~2022-05-06] MED LIST changes: -PROHANCE 279.3MG/ML 15ML VIAL As Ordered ONE
[2022-05-06 11:29] LABS: HEMOGLOBIN A1c 6.3 %
[2022-05-06 12:03] LABS: ALBUMIN 3.8 GM/DL (3.2-5.2); ALT/SGPT 34 U/L (12-78); BILIRUBIN,TOTAL 0.3 MG/DL (0.2-1.0); BLOOD UREA NITROGEN 18 MG/DL (7-18); CALCIUM LEVEL 8.9 MG/DL (8.8-10.2); CARBON DIOXIDE LEVEL 30 MEQ/L (21-32); CHLORIDE LEVEL 108 MEQ/L (98-107); CHOLESTEROL LEVEL 294 MG/DL (<200); CREATININE FOR GFR 0.76 MG/DL (0.55-1.30); FREE T4 0.77 NG/DL (0.76-1.46); GLOMERULAR FILTRATION RATE > 60.0 (>39); GLUCOSE, FASTING 120 MG/DL (70-100); HDL CHOLESTEROL 49 MG/DL (>40); NON-HDL-C 245 MG/DL; NT-PRO BNP 26 PG/ML (<125); SODIUM LEVEL 141 MEQ/L (136-145); TOTAL PROTEIN 6.7 GM/DL (6.4-8.2); TRIGLYCERIDES LEVEL 416 MG/DL (<150)
== END ==
LOC: M PLALAB 08:57
PROVIDERS: ATTEND Family Medicine
DX: E11.9 Type 2 diabetes mellitus without complications (principal)

== ENCOUNTER → 2022-05-07 | Outpatient (CLI) | payer MEDICARE | LOC: M CARPUL 09:05 | PROVIDERS: ATTEND Internal Medicine Medical Oncology | DX: I42.7 Cardiomyopathy due to drug and external agent (principal) ==

== ENCOUNTER → 2022-05-22 | Outpatient (CLI) | payer MEDICARE | LOC: M ONCR 14:26 | PROVIDERS: ATTEND General Practice | DX: C50.911 Malignant neoplasm of unspecified site of right female breast (principal); C77.9 Secondary and unspecified malignant neoplasm of lymph node, unspecified; E11.9 Type 2 diabetes mellitus without complications; E78.5 Hyperlipidemia, unspecified; F32.A Depression, unspecified; F41.8 Other specified anxiety disorders; G47.33 Obstructive sleep apnea (adult) (pediatric); I10 Essential (primary) hypertension; J30.2 Other seasonal allergic rhinitis; K22.719 Barrett's esophagus with dysplasia, unspecified; K58.9 Irritable bowel syndrome, unspecified; M19.90 Unspecified osteoarthritis, unspecified site; Z79.84 Long term (current) use of oral hypoglycemic drugs; Z79.811 Long term (current) use of aromatase inhibitors; Z79.899 Other long term (current) drug therapy; Z80.0 Family history of malignant neoplasm of digestive organs; Z80.7 Family history of other malignant neoplasms of lymphoid, hematopoietic and related tissues; Z80.8 Family history of malignant neoplasm of other organs or systems; Z88.8 Allergy status to other drugs, medicaments and biological substances; Z90.710 Acquired absence of both cervix and uterus; Z92.21 Personal history of antineoplastic chemotherapy | CPT/HCPCS: 71046; G0463 ==

== ENCOUNTER → 2022-05-22 | Outpatient (CLI) | payer MEDICARE | LOC: M PLAIMG 13:16 | PROVIDERS: ATTEND Family Medicine | DX: C50.919 Malignant neoplasm of unspecified site of unspecified female breast (principal) ==

== ENCOUNTER → 2022-06-01 | Outpatient (CLI) | payer MEDICARE | LOC: M LABSMTC 10:14 | PROVIDERS: ATTEND Anesthesiology | DX: Z01.818 Encounter for other preprocedural examination (principal); Z11.52 Encounter for screening for COVID-19 ==

== ENCOUNTER 2022-06-05 09:03 | Observation (INO) | payer MEDICARE ==
[~2022-06-05] VITALS: Ht 167.6 cm; Wt 70.8 kg
[~2022-06-05 09:03] MED LIST changes: +HEPARIN SOD (PORCINE) 5000UNITS/ML 1ML VIAL/SYRINGE SQ ONE; +LIDOCAINE 2% 100MG/5ML SDV (FOR ANES.) As Ordered ONE; +MIDAZOLAM INJ 2MG/2ML VIAL (J2250 PER 1MG) As Ordered ONE; +ONDANSETRON 4MG 2ML VIAL As Ordered ONE; +ROCURONIUM BROMIDE 50 MG/5 ML VIAL As Ordered ONE; +ceFAZolin SOD 2 GM in IV 1 EA IV ONE; +dexameTHASONE 4 MG/ML 1ML VIAL (J1100 PER 1MG) As Ordered ONE; +diphenhydrAMINE 50MG/ML VIAL As Ordered ONE; +fentaNYL 250 MCG/5 ML INJECTION As Ordered ONE; +propofoL 200 MG/20 ML VIAL As Ordered ONE
[2022-06-05] MEDS ORDERED: BUPIVACAINE LIPOSOME/PF 1.3% 20ML VIAL (13.3MG/ML)(EXPAREL) As Ordered ONE (09:06)
[2022-06-05] MEDS ORDERED: BUPIVACAINE HCL 0.25% 10ML VIAL As Ordered ONE (09:06)
[2022-06-05] MEDS ORDERED: GENTAMICIN SULF 80MG/2ML VIAL As Ordered ONE (09:07)
[2022-06-05] MEDS ORDERED: LR 1,000 ML IV SCH ×3 (10:35→17:30)
[2022-06-05] MEDS ORDERED: ISOSULFAN BLUE(LYMPHAZURIN) 1% 50MG/5ML VIAL As Ordered ONE (12:34)
[2022-06-05] MEDS ORDERED: METOCLOPRAMIDE INJ 10MG/2ML VIAL (J2765 PER 1) As Ordered ONE (13:21)
[2022-06-05] MEDS ORDERED: ePHEDrine SULFATE 25 MG/5 ML(5MG/ML) SYRINGE As Ordered ONE (13:40)
[2022-06-05] MEDS ORDERED: PHENYLephrine 500MCG 5ML (100MCG/ML) SYRINGE As Ordered ONE (14:03)
[2022-06-05] MEDS ORDERED: SUGAMMADEX SODIUM 500 MG/5 ML VIAL (BRIDION) As Ordered ONE (14:09)
[2022-06-05] MEDS ORDERED: HYDROmorphone HCL 2MG/ML 1ML VIAL As Ordered ONE (14:09)
[2022-06-05] MEDS ORDERED: ACETAMINOPHEN 1000MG 100ML IV BTL (OFIRMEV) (J0131 PER 10MG) As Ordered ONE (14:09)
[2022-06-05] MEDS ORDERED: ONDANSETRON 4MG 2ML VIAL IV PRN ×2 (17:10→17:30)
[2022-06-05] MEDS ORDERED: oxyCODONE 5MG TAB PO PRN (17:10)
[2022-06-05] MEDS ORDERED: HYDROMORPHONE HCL 0.5 MG/ 0.5 ML SYRINGE (J1170 PER 1) IV PRN (17:10)
[2022-06-05] MEDS ORDERED: fentaNYL 100 MCG/2 ML INJECTION IV PRN (17:10)
[2022-06-05] MEDS ORDERED: MORPHINE 2 MG/ML 1ML VIAL IV PRN (17:30)
[2022-06-05] MEDS ORDERED: ACETAMINOPHEN TAB 650MG DOSE (2X325MG) PO PRN (17:30)
[2022-06-05] MEDS ORDERED: GLUCAGON INJ 1MG VIAL SC PRN (18:00)
[2022-06-05] MEDS ORDERED: DEXTROSE 50% 50 ML SYRINGE IV PRN (18:00)
[2022-06-05] MEDS ORDERED: GLUCOSE 4GM CHEW TABLET PO PRN (18:00)
[2022-06-05] MEDS ORDERED: INSULIN LISPRO (NovoLOG) PER UNIT SC ONE (18:00)
[2022-06-05 19:06] VITALS: BP 124/90
[2022-06-05] MEDS: ceFAZolin SOD 2 GM in IV 1 EA IV SCH (19:20)
[2022-06-05 19:47] VITALS: BP 176/93
[2022-06-05 20:27] VITALS: BP 171/86
[2022-06-05] MEDS: ramipriL 1.25 MG CAP PO SCH (20:38)
[2022-06-05] MEDS: HEPARIN SOD (PORCINE) 5000UNITS/ML 1ML VIAL/SYRINGE SQ SCH (20:39)
[2022-06-05] MEDS ORDERED: INSULIN LISPRO (NovoLOG) PER UNIT SC SCH (21:00)
[2022-06-05 21:45] VITALS: BP 165/89
[2022-06-05] MEDS: traMADol 50 MG TAB PO PRN (22:08)
[2022-06-06 01:13] VITALS: BP 112/68
[2022-06-06] MEDS: ceFAZolin SOD 2 GM in IV 1 EA IV SCH ×2 (03:49→11:00)
[2022-06-06 06:01] VITALS: BP 116/68
[2022-06-06] MEDS: HEPARIN SOD (PORCINE) 5000UNITS/ML 1ML VIAL/SYRINGE SQ SCH (06:04)
[2022-06-06 07:09] LABS: BASO % 0.1 % (0.0-1.0); HEMATOCRIT 32.3 % (36.0-47.0); HEMOGLOBIN 10.8 g/dl (12.0-15.5); LYMPH # 1.4 10^3/uL (1.5-5.0); LYMPH % 12.9 % (24.0-44.0); MEAN CORPUSCULAR HEMOGLOBIN 33.6 pg (27.0-33.0); MEAN CORPUSCULAR HGB CONC 33.4 g/dl (32.0-36.5); MEAN CORPUSCULAR VOLUME 100.6 fl (80.0-96.0); MONO # 0.9 10^3/uL (0.0-0.8); MONO % 8.6 % (2.0-8.0); NEUTROPHILS # 8.5 10^3/uL (1.5-8.5); PLATELET COUNT, AUTOMATED 212 10^3/uL (150-450); RED BLOOD COUNT 3.21 10^6/uL (4.00-5.40); WHITE BLOOD COUNT 10.9 10^3/uL (4.0-10.0)
[2022-06-06] MEDS ORDERED: INSULIN LISPRO (NovoLOG) PER UNIT SC SCH (07:30)
[2022-06-06 07:46] LABS: BLOOD UREA NITROGEN 12 MG/DL (7-18); CALCIUM LEVEL 8.4 MG/DL (8.8-10.2); CARBON DIOXIDE LEVEL 26 MEQ/L (21-32); CHLORIDE LEVEL 106 MEQ/L (98-107); CREATININE FOR GFR 0.67 MG/DL (0.55-1.30); GLOMERULAR FILTRATION RATE > 60.0 (>39); GLUCOSE, FASTING 153 MG/DL (70-100); POTASSIUM SERUM 3.9 MEQ/L (3.5-5.1); SODIUM LEVEL 139 MEQ/L (136-145)
[2022-06-06] MEDS ORDERED: ATORVASTATIN 10 MG TAB PO SCH (09:00)
[2022-06-06] MEDS ORDERED: MAGNESIUM OXIDE 400MG TAB (MAG-OX) PO SCH (09:00)
[2022-06-06] MEDS ORDERED: OMEPRAZOLE 20MG CAP PO SCH (09:00)
[2022-06-06 09:01] VITALS: BP 116/68
[2022-06-06] MEDS: traMADol 50 MG TAB PO PRN (09:01)
[2022-06-06] MEDS: ramipriL 1.25 MG CAP PO SCH (09:01)
[2022-06-06] MEDS ORDERED: TRAM50TA2 PO (10:04)
== END 2022-06-06 12:10 | disposition home or self-care (01) ==
LOC: M SDC 09:03 → M ED INP 17:26 → M MS5PR 18:30
PROVIDERS: ADMIT Surgery; ATTEND Surgery
DX: D05.11 Intraductal carcinoma in situ of right breast (principal); C77.3 Secondary and unspecified malignant neoplasm of axilla and upper limb lymph nodes; N64.89 Other specified disorders of breast; Z92.21 Personal history of antineoplastic chemotherapy; I10 Essential (primary) hypertension; G47.33 Obstructive sleep apnea (adult) (pediatric); E11.9 Type 2 diabetes mellitus without complications; K21.9 Gastro-esophageal reflux disease without esophagitis; G47.61 Periodic limb movement disorder; K58.2 Mixed irritable bowel syndrome; E78.5 Hyperlipidemia, unspecified; Z79.899 Other long term (current) drug therapy; Z79.84 Long term (current) use of oral hypoglycemic drugs; Z88.8 Allergy status to other drugs, medicaments and biological substances
CPT/HCPCS: 15570; 19302; 36415; 38792; 76942; 78195; 80048; 85025; 86850; 86900; 86901; 88307; 88331; 94660; 96374; 96376; A4648; A9520; C9290; G0378; J0131; J0690; J1100; J1170; J1200; J1580; J1644; J1815; J2250; J2370; J2405; J2765; J3010; Q9968

== ENCOUNTER → 2022-06-23 | Outpatient (CLI) | payer MEDICARE ==
[~2022-06-23] MED LIST changes: -HEPARIN SOD (PORCINE) 5000UNITS/ML 1ML VIAL/SYRINGE SQ ONE; -LIDOCAINE 2% 100MG/5ML SDV (FOR ANES.) As Ordered ONE; -MIDAZOLAM INJ 2MG/2ML VIAL (J2250 PER 1MG) As Ordered ONE; -ONDANSETRON 4MG 2ML VIAL As Ordered ONE; -ROCURONIUM BROMIDE 50 MG/5 ML VIAL As Ordered ONE; +TRAM50TA2 PO; -ceFAZolin SOD 2 GM in IV 1 EA IV ONE; -dexameTHASONE 4 MG/ML 1ML VIAL (J1100 PER 1MG) As Ordered ONE; -diphenhydrAMINE 50MG/ML VIAL As Ordered ONE; -fentaNYL 250 MCG/5 ML INJECTION As Ordered ONE; -propofoL 200 MG/20 ML VIAL As Ordered ONE
== END ==
LOC: M WHC 13:42
PROVIDERS: ATTEND Internal Medicine Medical Oncology
DX: M81.0 Age-related osteoporosis without current pathological fracture (principal)

== ENCOUNTER 2022-07-08 10:10 | Outpatient (RCR) | payer MEDICARE ==
[~2022-07-08 10:10] MED LIST changes: +DIPH-435 PO; -DIPH25CA32 PO
[2022-08-06] MEDS ORDERED: POTA-150 PO (13:10)
== END 2022-08-02 ==
LOC: M ONCR 10:10
PROVIDERS: ATTEND General Practice
DX: C50.111 Malignant neoplasm of central portion of right female breast (principal)

== ENCOUNTER 2022-07-14 14:36 | Outpatient (RCR) | payer MEDICARE ==
[2022-08-06] MEDS ORDERED: POTA-150 PO (13:10)
== END 2022-08-02 ==
LOC: M PT 14:36
PROVIDERS: ATTEND Nurse Practitioner Women's Health
DX: C50.811 Malignant neoplasm of overlapping sites of right female breast (principal)

== ENCOUNTER → 2022-08-20 | Outpatient (CLI) | payer MEDICARE | LOC: M CARPUL 08:10 | PROVIDERS: ATTEND Internal Medicine Medical Oncology | DX: I42.7 Cardiomyopathy due to drug and external agent (principal) ==

== ENCOUNTER → 2022-09-02 | Outpatient (RCR) | payer MEDICARE | LOC: M ONCR 08-25 08:03 | PROVIDERS: ATTEND General Practice | DX: C50.111 Malignant neoplasm of central portion of right female breast (principal) ==

== ENCOUNTER → 2022-09-30 | Outpatient (RCR) | payer MEDICARE ==
[~2022-09-30] MED LIST changes: +LETR2.5T2 PO; +LIDO2SOL9 PO
== END ==
LOC: M ONCR 09-03 08:07
PROVIDERS: ATTEND General Practice
DX: C50.111 Malignant neoplasm of central portion of right female breast (principal)

== ENCOUNTER 2022-10-02 08:03 | Outpatient (RCR) | payer MEDICARE ==
[2022-10-14] MEDS ORDERED: LIDO1CRE42 TOP (13:03)
== END 2022-10-31 ==
LOC: M ONCR 08:03
PROVIDERS: ATTEND General Practice
DX: C50.111 Malignant neoplasm of central portion of right female breast (principal)

== ENCOUNTER → 2022-10-14 | Outpatient (CLI) | payer MEDICARE ==
[2022-10-14 11:17] LABS: CREATININE, URINE 185.9 MG/DL
[2022-10-14 11:18] LABS: MAU/CREAT RATIO 4.8 MCG/MG (0.0-30.0)
[2022-10-14 11:39] LABS: ALBUMIN 3.5 G/DL (3.2-5.2); ALKALINE PHOSPHATASE 117 U/L (46-116); ALT/SGPT 32 U/L (7.0-40); AST/SGOT 53 U/L (<34); BILIRUBIN,TOTAL 0.6 MG/DL (0.3-1.2); BLOOD UREA NITROGEN 17 MG/DL (9-23); CALCIUM LEVEL 9.1 MG/DL (8.3-10.6); CARBON DIOXIDE LEVEL 30 MMOL/L (20-31); CHLORIDE LEVEL 101 MMOL/L (98-107); CHOLESTEROL LEVEL 247 MG/DL (<200); CHOLESTEROL RISK RATIO 5.69 (<5); CREATININE FOR GFR 0.68 MG/DL (0.55-1.30); GLOMERULAR FILTRATION RATE > 60.0 (>39); GLUCOSE, FASTING 103 MG/DL (74-106); HDL CHOLESTEROL 43.4 MG/DL (>40); NON-HDL-C 203.6 MG/DL; POTASSIUM SERUM 3.6 MMOL/L (3.5-5.1); SODIUM LEVEL 140 MMOL/L (136-145); TOTAL 25(OH) VITAMIN D 92.7 NG/ML (20.0-100.0)
[2022-10-14 12:24] LABS: HEMOGLOBIN A1c 6.6 % (4.0-6.0)
[2022-10-14 12:48] LABS: LDL CHOLESTEROL 176.8 MG/DL (<100); TOTAL PROTEIN 6.7 G/DL (5.7-8.2); TRIGLYCERIDES LEVEL 134 MG/DL (<150)
== END ==
LOC: M PLALAB 08:47
PROVIDERS: ATTEND Family Medicine
DX: E11.9 Type 2 diabetes mellitus without complications (principal)

== ENCOUNTER → 2022-11-12 | Outpatient (CLI) | payer MEDICARE ==
[~2022-11-12] MED LIST changes: +LIDO2SOBTL PO; -LIDO2SOL9 PO
== END ==
LOC: M CARPUL 13:32
PROVIDERS: ATTEND Internal Medicine Medical Oncology
DX: I42.7 Cardiomyopathy due to drug and external agent (principal)

== ENCOUNTER → 2022-11-20 | Outpatient (CLI) | payer MEDICARE ==
[~2022-11-20] MED LIST changes: +EXEM25TA PO; +POTA-151 PO
== END ==
LOC: M WHC 09:23
PROVIDERS: ATTEND Nurse Practitioner Women's Health
DX: Z12.31 Encounter for screening mammogram for malignant neoplasm of breast (principal); C50.911 Malignant neoplasm of unspecified site of right female breast
CPT/HCPCS: 77066; G0279

== ENCOUNTER → 2023-04-08 | Outpatient (CLI) | payer MEDICARE ==
[~2023-04-08] MED LIST changes: -LIDO1CRE42 TOP; +LIDO30CR18 TOP; +MAGICMW SSP
== END ==
LOC: M ONCR 10:27
PROVIDERS: ATTEND General Practice
DX: C50.111 Malignant neoplasm of central portion of right female breast (principal); I89.0 Lymphedema, not elsewhere classified; Z71.2 Person consulting for explanation of examination or test findings; Z79.899 Other long term (current) drug therapy; Z88.8 Allergy status to other drugs, medicaments and biological substances; Z90.10 Acquired absence of unspecified breast and nipple; Z92.21 Personal history of antineoplastic chemotherapy; Z92.3 Personal history of irradiation

== ENCOUNTER → 2023-09-08 | Outpatient (CLI) | payer MEDICARE ==
[~2023-09-08] MED LIST changes: +LIDO100S29 PO; -LIDO2SOBTL PO
== END ==
LOC: M RAD 09:31
PROVIDERS: ATTEND Internal Medicine Medical Oncology
DX: C50.919 Malignant neoplasm of unspecified site of unspecified female breast (principal); M54.9 Dorsalgia, unspecified
CPT/HCPCS: 78306; A9503

== ENCOUNTER 2023-09-10 21:00 | Emergency (ER) | payer MEDICARE ==
[~2023-09-10] VITALS: Ht 167.6 cm; Wt 68.2 kg
[2023-09-10] MEDS: LORazepam 2 MG/ML 1ML VIAL IV STA (23:21)
[2023-09-10 23:27] LABS: BASO % 0.7 % (0.0-1.0); EOS # 0.1 10^3/uL (0.0-0.5); EOS % 1.7 % (0.0-3.0); HEMATOCRIT 44.2 % (36.0-47.0); HEMOGLOBIN 15.1 g/dl (12.0-15.5); LYMPH # 0.9 10^3/uL (1.5-5.0); LYMPH % 17.2 % (24.0-44.0); MEAN CORPUSCULAR HEMOGLOBIN 32.2 pg (27.0-33.0); MEAN CORPUSCULAR HGB CONC 34.2 g/dl (32.0-36.5); MEAN CORPUSCULAR VOLUME 94.2 fl (80.0-96.0); MONO # 0.4 10^3/uL (0.0-0.8); MONO % 7.2 % (2.0-8.0); PLATELET COUNT, AUTOMATED 192 10^3/uL (150-450); RED BLOOD COUNT 4.69 10^6/uL (4.00-5.40); WHITE BLOOD COUNT 5.5 10^3/uL (4.0-10.0)
[2023-09-10 23:58] LABS: ALBUMIN 4.4 G/DL (3.2-5.2); ALKALINE PHOSPHATASE 154 U/L (46-116); ALT/SGPT 51 U/L (7.0-40); AST/SGOT 42 U/L (<34); BILIRUBIN,DIRECT 0.1 MG/DL (<0.4); BILIRUBIN,TOTAL 0.4 MG/DL (0.3-1.2); BLOOD UREA NITROGEN 13 MG/DL (9-23); CARBON DIOXIDE LEVEL 28 MMOL/L (20-31); CHLORIDE LEVEL 105 MMOL/L (98-107); CREATININE FOR GFR 0.57 MG/DL (0.55-1.30); GLOMERULAR FILTRATION RATE > 60.0 (>39); GLUCOSE, FASTING 245 MG/DL (74-106); POTASSIUM SERUM 3.7 MMOL/L (3.5-5.1); SODIUM LEVEL 141 MMOL/L (136-145); TOTAL PROTEIN 7.5 G/DL (5.7-8.2)
[2023-09-11 00:01] LABS: THYROID STIMULATING HORMONE 4.834 uIU/ML (0.55-4.78)
[2023-09-11 01:57] VITALS: BP 159/77; TEMP 98.1; O2SAT 98
[2023-09-11] MEDS ORDERED: REGL5TAB2 PO (03:26)
== END 2023-09-11 03:57 | disposition home or self-care (01) ==
LOC: M ED 21:00
DX: K30 Functional dyspepsia (principal); F41.9 Anxiety disorder, unspecified; I10 Essential (primary) hypertension; E11.9 Type 2 diabetes mellitus without complications; E78.5 Hyperlipidemia, unspecified; K22.70 Barrett's esophagus without dysplasia; K58.9 Irritable bowel syndrome, unspecified; Z85.3 Personal history of malignant neoplasm of breast
CPT/HCPCS: 36415; 71045; 74176; 80048; 80076; 83735; 84443; 85025; 93005; 93041; 96374; 99284; J2060

== ENCOUNTER → 2023-10-07 | Outpatient (CLI) | payer MEDICARE ==
[~2023-10-07] MED LIST changes: +REGL5TAB2 PO
[2023-10-07 12:47] LABS: FREE T4 0.9 NG/DL (0.89-1.76); THYROID STIMULATING HORMONE 1.133 uIU/ML (0.55-4.78)
== END ==
LOC: M ONCR 10:15
PROVIDERS: ATTEND General Practice
DX: C50.111 Malignant neoplasm of central portion of right female breast (principal); K31.84 Gastroparesis; I89.0 Lymphedema, not elsewhere classified; Z12.39 Encounter for other screening for malignant neoplasm of breast; Z71.2 Person consulting for explanation of examination or test findings; Z79.899 Other long term (current) drug therapy; Z88.1 Allergy status to other antibiotic agents; Z92.21 Personal history of antineoplastic chemotherapy; Z92.3 Personal history of irradiation; Z98.890 Other specified postprocedural states
CPT/HCPCS: 36415; 84439; 84443; G0463

== ENCOUNTER → 2023-11-23 | Outpatient (CLI) | payer MEDICARE ==
[~2023-11-23] MED LIST changes: +METO5TAB2 PO
== END ==
LOC: M WHC 12:42
PROVIDERS: ATTEND Nurse Practitioner Women's Health
DX: C50.811 Malignant neoplasm of overlapping sites of right female breast (principal)
CPT/HCPCS: 77066; G0279

== ENCOUNTER 2024-01-03 12:03 | Emergency (ER) | payer MEDICARE ==
[~2024-01-03] VITALS: Ht 167.6 cm; Wt 65.9 kg
[~2024-01-03 12:03] MED LIST changes: -GLIM1TAB4 PO; +GLIM1TAB84 PO; -RAMI1CAP22 PO; +RAMI2.5C42 PO; +ROSU5TAB40 PO; -ROSU5TAB5 PO
[2024-01-03 14:07] LABS: BASO # 0.1 10^3/uL (0.0-0.2); BASO % 0.9 % (0.0-1.0); EOS # 0.1 10^3/uL (0.0-0.5); EOS % 1.6 % (0.0-3.0); HEMATOCRIT 43.8 % (36.0-47.0); LYMPH % 14.6 % (24.0-44.0); MEAN CORPUSCULAR HEMOGLOBIN 32.1 pg (27.0-33.0); MEAN CORPUSCULAR HGB CONC 34.2 g/dl (32.0-36.5); MEAN CORPUSCULAR VOLUME 93.8 fl (80.0-96.0); MONO # 0.5 10^3/uL (0.0-0.8); MONO % 6.7 % (2.0-8.0); NEUTROPHILS # 5.4 10^3/uL (1.5-8.5); NEUTROPHILS % 75.9 % (36.0-66.0); PLATELET COUNT, AUTOMATED 213 10^3/uL (150-450); RED BLOOD COUNT 4.67 10^6/uL (4.00-5.40)
[2024-01-03 14:21] LABS: INR 0.97; PARTIAL THROMBOPLASTIN TIME 24.8 SECONDS (24.8-34.2); PROTHROMBIN TIME 12.6 SECONDS (12.5-14.5)
[2024-01-03 14:22] LABS: HEMOGLOBIN A1c 7.4 % (4.0-6.0)
[2024-01-03 14:34] LABS: CPK CREATINE PHOSPHOKINASE 49 U/L (34-145)
[2024-01-03 14:54] LABS: ALBUMIN 4.5 G/DL (3.2-5.2); ALKALINE PHOSPHATASE 118 U/L (46-116); ALT/SGPT 26 U/L (7.0-40); AST/SGOT 18 U/L (<34); BILIRUBIN,DIRECT < 0.1 MG/DL (<0.4); BILIRUBIN,TOTAL 0.4 MG/DL (0.3-1.2); BLOOD UREA NITROGEN 16 MG/DL (9-23); CALCIUM LEVEL 10.4 MG/DL (8.3-10.6); CARBON DIOXIDE LEVEL 28 MMOL/L (20-31); CHLORIDE LEVEL 107 MMOL/L (98-107); CK-MB VALUE MASS < 1.0 NG/ML (<3.6); CREATININE FOR GFR 0.65 MG/DL (0.55-1.30); FREE T4 0.96 NG/DL (0.89-1.76); GLOMERULAR FILTRATION RATE > 60.0 (>39); GLUCOSE, FASTING 116 MG/DL (74-106); MB/CK RELATIVE INDEX 2.04 (< OR =4); POTASSIUM SERUM 4.4 MMOL/L (3.5-5.1); SODIUM LEVEL 141 MMOL/L (136-145); THYROID STIMULATING HORMONE 1.541 uIU/ML (0.55-4.78); TOTAL PROTEIN 7.4 G/DL (5.7-8.2)
[2024-01-03] MEDS ORDERED: ISOVUE-370 76% 100ML VIAL As Ordered ONE (16:03)
[2024-01-03 17:30] VITALS: BP 143/76; O2SAT 98
[2024-01-03] MEDS ORDERED: METO5TAB2 PO (17:30)
[2024-01-03 17:47] VITALS: TEMP 98.5
== END 2024-01-03 17:48 | disposition home or self-care (01) ==
LOC: M ED 12:03
DX: R55 Syncope and collapse (principal); K46.9 Unspecified abdominal hernia without obstruction or gangrene; E11.9 Type 2 diabetes mellitus without complications; M51.36 Other intervertebral disc degeneration, lumbar region; M51.34 Other intervertebral disc degeneration, thoracic region; K58.9 Irritable bowel syndrome, unspecified; D51.9 Vitamin B12 deficiency anemia, unspecified; Z90.89 Acquired absence of other organs; Z88.8 Allergy status to other drugs, medicaments and biological substances; Z79.899 Other long term (current) drug therapy; Z90.710 Acquired absence of both cervix and uterus
CPT/HCPCS: 36415; 71045; 71275; 74177; 80048; 80076; 81001; 82550; 82553; 83036; 83605; 83735; 84439; 84443; 84484; 85025; 85610; 85730; 87040; 87486; 87581; 87633; 87798; 93005; 93041; 94760; 99285; Q9967

== ENCOUNTER → 2024-01-29 | Outpatient (CLI) | payer MEDICARE ==
[~2024-01-29] MED LIST changes: +ATIV1TAB7 PO; +ISOVUE-370 76% 100ML VIAL As Ordered ONE; +METF500T13 PO; +THYR60TA
== END ==
LOC: M RAD 15:54
PROVIDERS: ATTEND Internal Medicine Medical Oncology
DX: R51.9 Headache, unspecified (principal); C50.919 Malignant neoplasm of unspecified site of unspecified female breast
CPT/HCPCS: 70470; Q9967

== ENCOUNTER → 2024-04-08 | Outpatient (CLI) | payer MEDICARE ==
[~2024-04-08] MED LIST changes: -ISOVUE-370 76% 100ML VIAL As Ordered ONE; -THYR60TA; +THYR60TA PO
== END ==
LOC: M ONCR 10:14
PROVIDERS: ATTEND General Practice
DX: Z08 Encounter for follow-up examination after completed treatment for malignant neoplasm (principal); Z85.3 Personal history of malignant neoplasm of breast; I89.0 Lymphedema, not elsewhere classified; Z88.1 Allergy status to other antibiotic agents; Z79.84 Long term (current) use of oral hypoglycemic drugs; Z79.899 Other long term (current) drug therapy; Z92.21 Personal history of antineoplastic chemotherapy; Z92.3 Personal history of irradiation

== ENCOUNTER 2024-10-28 11:08 | Day surgery (SDC) | payer MEDICARE ==
[~2024-10-28] VITALS: Ht 168.9 cm; Wt 66.2 kg
[~2024-10-28 11:08] MED LIST changes: +ADRENAL COMPLEX; +CHOLESTEROL CARE PO; +GLUC500C37 PO; +GLYCINE PO; +MAGN1POW28 PO; +PANCREATIN PO; +POTA99TA10 PO; -ROSU5TAB40 PO; +ROSU5TAB49 PO; +[UNRECOGNIZED DRUG - CODE] EX; +[UNRECOGNIZED DRUG - CODE] PO; +[UNRECOGNIZED DRUG - CODE] PO; +[UNRECOGNIZED DRUG - OTHER] PO; +[UNRECOGNIZED DRUG - OTHER] PO; +[UNRECOGNIZED DRUG - OTHER] PO; +[UNRECOGNIZED DRUG - OTHER] PO; +[UNRECOGNIZED DRUG - OTHER] PO; +[UNRECOGNIZED DRUG - OTHER] PO; +[UNRECOGNIZED DRUG - OTHER] PO; +antronex PO
[2024-10-28] MEDS ORDERED: LIDOCAINE 2% 100MG/5ML SDV (FOR ANES.) As Ordered ONE (12:19)
[2024-10-28] MEDS ORDERED: propofoL 200 MG/20 ML VIAL As Ordered ONE (12:19)
[2024-10-28] MEDS ORDERED: GLYCOPYRROLATE INJ 0.2 MG/ML 2 ML VIAL As Ordered ONE (12:19)
[2024-10-28 13:26] VITALS: TEMP 97.5
[2024-10-28 13:43] VITALS: BP 143/78; O2SAT 98
== END 2024-10-28 13:55 | disposition home or self-care (01) ==
LOC: M OPP 11:08
PROVIDERS: ATTEND Internal Medicine Gastroenterology
DX: D12.7 Benign neoplasm of rectosigmoid junction (principal); K64.8 Other hemorrhoids; Z86.0100 Personal history of colon polyps, unspecified; K22.70 Barrett's esophagus without dysplasia; K44.9 Diaphragmatic hernia without obstruction or gangrene; G47.30 Sleep apnea, unspecified; Z88.8 Allergy status to other drugs, medicaments and biological substances; Z79.84 Long term (current) use of oral hypoglycemic drugs; Z79.899 Other long term (current) drug therapy
CPT/HCPCS: 43239; 45385; 88305; J1596